=== PATIENT | male | born 1950 | race Caucasian/White ===

== ENCOUNTER → 2016-08-16 | Outpatient (CLI) | payer MEDICARE, BC ==
[2014-06-18 11:29] VITALS: BP 135/78
[~2016-08-16] MED LIST: AMLO5TAB2 PO; ATOR20TA58 PO; CONTRAST GIVEN MC PRN; CYCL10TA2 PO; DOCU-109 PO; ERGO500027 PO; FEXO180T16 PO; FLUT12AE IH; HYDR12.58 PO; LEVO75TA5 PO; LOSA50TA6 PO; TAMS0.4C2 PO; TRIA115C TP; [UNRECOGNIZED DRUG - REMARK]
[2016-08-16 09:07] LABS: CREATININE 1.6 mg/dL (0.7-1.3); GFR 43.2
[2016-08-16] MEDS: IOHEXOL 300 MG/ML 75 ML VIAL IV ONE (09:19)
--- NOTE | 2016-08-16 10:30 | RAD ---
CT of the abdomen with and without contrast, 08/16/2016: History: Follow-up renal mass Multidetector CT imaging was performed prior to and following an IV bolus injection of iodinated contrast material. The postcontrast scans were obtained in nephrographic, portal venous and excretory phases. No oral contrast material was administered for this study. Comparison is made to CT studies from 06/15/2015 and 07/09/2014. No renal calculi are identified. There is minimal bilateral cortical scarring. There is mild streaky perinephric edema or scarring bilaterally. There is a faint 8 mm low density nodule in the upper pole of the right kidney. It is best seen on coronal image 85 of series #12. It has shown no definite change since a study from 07/09/2014. It is too small to definitively characterize on the CT study. The vague area of decreased density seen laterally in the right kidney on previous studies is not visible on today's exam. This may represent a complicated cyst which has regressed or an old focus of infection. No new or enlarging renal lesions are seen. The renal collecting systems and proximal ureters are unremarkable. No hepatic abnormality is detected. The gallbladder is unremarkable. No pancreatic abnormality is detected. The spleen is of normal size. No adrenal abnormality is detected. There is mild calcific plaquing of the abdominal aorta and its branches. Coronary artery calcifications are present. No abdominal adenopathy is seen. The visualized bowel loops are unremarkable. IMPRESSION: 1. Unchanged tiny subcentimeter low density nodule in the upper pole of the right kidney, too small to characterize. A prior MR study suggested that this is a cyst. 2. Further regression of the lesion previously seen laterally in the right kidney, no longer clearly visible. 3. Mild bilateral renal cortical scarring. 4. Minimal bilateral perinephric edema and/or scarring. PQRS Compliance Statement: One or more of the following individualized dose reduction techniques were utilized for this examination: 1. Automated exposure control 2. Adjustment of the mA and/or kV according to patient size 3. Use of iterative reconstruction technique
== END | disposition home or self-care (01) ==
LOC: CT 08:21
PROVIDERS: ATTEND Urology
DX: I25.10 Atherosclerotic heart disease of native coronary artery without angina pectoris (principal); N28.89 Other specified disorders of kidney and ureter; E04.1 Nontoxic single thyroid nodule; L90.5 Scar conditions and fibrosis of skin
CPT/HCPCS: 36415; 74170; 82565; Q9967

== ENCOUNTER → 2016-10-31 | Outpatient (CLI) | payer MEDICARE ==
[2014-06-18 11:29] VITALS: BP 135/78
[~2016-10-31] MED LIST changes: -CONTRAST GIVEN MC PRN
--- NOTE | 2016-10-31 14:46 | KCIC ---
MRI of the lumbar spine without contrast 10/31/2016 CLINICAL HISTORY: Chronic low back pain with slight improvement post surgery. The low back pain radiates down the left leg. TECHNIQUE: Unenhanced T1-weighted and T2-weighted sagittal and axial and inversion recovery sagittal images of the lumbar spine were obtained. FINDINGS: Comparison study is dated 06/03/2014. Very mild S-shaped curvature of the thoracic lumbar spine is seen. Moderate anterolisthesis of L4 in relation to L5 is seen. Obliteration the L4-5 disc space is noted. Bony fusion across the disc is seen which is new since the previous study. Degenerative signal changes are seen involving all of the disks of the lumbar spine. Degenerative signal changes are seen within the marrow surrounding these discs particularly at L4-5. The conus medullaris is normal morphology, position, and signal characteristics. The L1-2 disc space there is a mild to moderate generalized disc bulge. Degenerative changes are seen involving the facet joints bilaterally. There is mild ligamentum flavum hypertrophy. There is prominence of the posterior epidural fat. These findings when combined result in mild central spinal canal stenosis. No neural foraminal stenosis is seen. At the L2-3 disc space there is a mild generalized disc bulge. Degenerative changes are seen involving the facet joints bilaterally. There is mild ligamentum flavum hypertrophy bilaterally. These findings when combine result in mild to moderate central spinal canal stenosis. No neural foraminal stenosis is seen. At the L3-4 disc space there is a moderate generalized disc bulge. Degenerative changes are seen involving the facet joints bilaterally. There is moderate ligamentum flavum hypertrophy bilaterally. There is prominence of the posterior epidural fat. These findings when combine result in severe central spinal canal stenosis. Mild bilateral neural foraminal stenosis is seen. At the L4-5 disc space the patient is post left hemilaminotomy. There is a mild generalized disc bulge. Degenerative changes are seen involving the facet joints, right greater than left. These findings when combined with the anterolisthesis result in mild to moderate right greater than left central spinal canal stenosis. This has improved since the previous examination.Severe right neural foraminal stenosis is seen. Mild left neural foraminal stenosis is noted. At the L5-S1 disc space there is a mild to moderate generalized disc bulge. This is eccentric to the left. Degenerative changes are seen involving the facet joints bilaterally. These findings when combined do not result in significant central spinal canal stenosis. Mild to moderate left neural foraminal stenosis is seen. The right neural foramen is patent. IMPRESSION: 1. Post left hemilaminotomy at L4-5. The central spinal canal stenosis has improved since the previous examination. 2. The changes of degenerative disc disease are seen throughout the lumbar spine. These findings result in mild to moderate central spinal canal stenosis at L2-3, severe central spinal canal stenosis at L3-4 and mild to moderate right greater than left central spinal canal stenosis at L4-5. Mild bilateral neural foraminal stenosis is seen at at L3-4. Severe right neural foraminal stenosis is seen at L4-5. Mild left neural foraminal stenosis is seen at L4-5. Mild to moderate left neural foraminal stenosis is seen at L5-S1. Electronically signed by: Job Bettencourt MD (10/31/2016 2:42 PM) [facility]
== END | disposition home or self-care (01) ==
LOC: KCIC MRI 10:35
PROVIDERS: ATTEND Family Medicine
DX: M48.06 Spinal stenosis, lumbar region (principal); M51.36 Other intervertebral disc degeneration, lumbar region
CPT/HCPCS: 72148

== ENCOUNTER → 2016-11-29 | Outpatient (CLI) | payer MEDICARE ==
[2014-06-18 11:29] VITALS: BP 135/78
[~2016-11-29] MED LIST changes: +ASPI-482 PO; +HYDR-2758 PO; +HYDR-2762 PO; +ISOS60TA2 PO; +METH750T2 PO
[2016-11-29 14:20] LABS: BASO % 1 % (0-3); EOS % 13 % (0-3); HEMATOCRIT 33.7 % (39.0-53.0); HEMOGLOBIN 11.5 g/dL (13.0-17.5); LYMPH # 1.4 x10^3/uL (1.0-4.8); LYMPH % 20 % (24-48); MEAN CORPUSCULAR HEMOGLOBIN 32 pg (25-35); MEAN CORPUSCULAR HGB CONC 34 g/dL (31-37); MEAN CORPUSCULAR VOLUME 93 fL (79-100); MONO % 10 % (0-9); NEUT % 56 % (31-73); PLATELET COUNT 232 x10^3/uL (140-400); RED BLOOD COUNT 3.62 x10^6/uL (4.30-5.70); RED CELL DISTRIBUTION WIDTH 13.3 % (11.5-14.5); WHITE BLOOD COUNT 7.1 x10^3/uL (4.0-11.0)
[2016-11-29 15:00] LABS: ALBUMIN 3.9 g/dL (3.4-5.0); ALBUMIN/GLOBULIN RATIO 1.1 (1.0-1.7); CALCIUM 9.4 mg/dL (8.5-10.1); CREATININE 1.5 mg/dL (0.7-1.3); GFR 46.5; POTASSIUM 4.4 mmol/L (3.5-5.1); TOTAL BILIRUBIN 0.6 mg/dL (0.2-1.0); TOTAL PROTEIN 7.3 g/dL (6.4-8.2)
--- NOTE | 2016-12-05 11:04 | HP ---
ADMIT DATE: 12/05/2016 Renny Barton APRN, dictating for Dr. Cole Ruiz. Preoperative history and physical for surgery scheduled on 12/06/2016. HISTORY OF PRESENT ILLNESS: The patient is a pleasant 66-year-old who in 06/2014 underwent lumbar microsurgery at L4-L5 and did well from that. He says that over the last 6 months to a year, he has developed low back pain which radiates to the left lateral thigh and leg. There is pain in his left ankle. There is no inciting event. Standing and walking increases pain. He rates his pain as an 8/10 with walking. Sitting for prolonged periods also increases his pain. He takes [place] to help. Rest and limitation of activities have been of no significant benefit for him. PAST MEDICAL HISTORY: Asthma/COPD, neck/head injury, hypertension, serious infection. PAST SURGICAL HISTORY: Cervical surgery in 1988, shoulder repair in 2013, hernia repair in 2013, lumbar microdecompression at L4-L5 left in 06/2014. FAMILY HISTORY: Alzheimer disease, aneurysm, heart problems/disease, hypertension. SOCIAL HISTORY: Retired. . Exercises by walking. He is a nonsmoker. He drinks 4 drinks daily. He drinks soda daily. ALLERGIES: No known allergies. CURRENT MEDICATIONS: Zolpidem, levothyroxine, losartan, atorvastatin, amlodipine, tamsulosin, and [place]. REVIEW OF SYSTEMS: A 12-point review of systems was obtained and is noncontributory except for that mentioned above. PHYSICAL EXAMINATION: GENERAL APPEARANCE: Alert, pleasant, in no acute distress. HEAD: Normocephalic and atraumatic. SKIN: Warm and dry. Well-healed lumbar incision. MUSCULOSKELETAL: Lumbar paraspinal muscle bulk is normal, restricted range of motion of lumbar spine, [id number] tenderness over the lower lumbar spine with palpation, normal range of motion of the lower extremities bilaterally. EXTREMITIES: No clubbing, cyanosis, or edema. NEUROLOGIC: Alert and oriented x 3, normal recent and remote memory, strength 5/5 in bilateral lower extremities, sensory was intact to light touch in bilateral lower extremities, reflexes were trace and symmetric in the lower extremities bilaterally, negative straight leg raising bilaterally, antalgic gait favoring his left leg. IMAGING: Reviewed. I reviewed his lumbar MRI scan. On that study, there is severe stenosis seen at L4-L5 that has improved. He had developed increasing stenosis at L3-L4 which is now severe as well as moderately severe stenosis at L2-L3. This is due to an increase in the hypertrophic facet disease as well as an increase in the amount of adipose tissue within the spinal canal. ASSESSMENT: Spinal stenosis, lumbar region with neurogenic claudication. PLAN: He has lumbar spinal stenosis, which is severe. He is becoming very symptomatic. At this point, I recommended a left direct laminectomy at L3-L4 and L2-L3 to decompress these levels. Hopefully, this will give him significant relief. I did speak about the surgery and the risks involved. I spoke about the technique of the operation. I discussed the expected postoperative course. He understands and would like to go ahead. We will make the arrangements. COLE RUIZ MD DR: RYAN/nia JOB#: [id number] / [id number]
== END | disposition home or self-care (01) ==
LOC: SURGPAT 13:19
PROVIDERS: ATTEND Neurological Surgery
DX: Z01.818 Encounter for other preprocedural examination (principal); M48.061 Spinal stenosis, lumbar region without neurogenic claudication; M48.062 Spinal stenosis, lumbar region with neurogenic claudication
CPT/HCPCS: 36415; 80053; 85025; 87641

== ENCOUNTER 2016-12-06 07:05 | Observation (INO) | payer MEDICARE ==
--- NOTE | 2016-12-05 17:10 | HP ---
ADMIT DATE: 12/05/2016 Renny Barton APRN, dictating for Dr. Cole Ruiz. Preoperative history and physical for surgery scheduled on 12/06/2016. HISTORY OF PRESENT ILLNESS: The patient is a pleasant 66-year-old who in 06/2014 underwent lumbar microsurgery at L4-L5 and did well from that. He says that over the last 6 months to a year, he has developed low back pain which radiates to the left lateral thigh and leg. There is pain in his left ankle. There is no inciting event. Standing and walking increases pain. He rates his pain as an 8/10 with walking. Sitting for prolonged periods also increases his pain. He takes [place] to help. Rest and limitation of activities have been of no significant benefit for him. PAST MEDICAL HISTORY: Asthma/COPD, neck/head injury, hypertension, serious infection. PAST SURGICAL HISTORY: Cervical surgery in 1988, shoulder repair in 2013, hernia repair in 2013, lumbar microdecompression at L4-L5 left in 06/2014. FAMILY HISTORY: Alzheimer disease, aneurysm, heart problems/disease, hypertension. SOCIAL HISTORY: Retired. . Exercises by walking. He is a nonsmoker. He drinks 4 drinks daily. He drinks soda daily. ALLERGIES: No known allergies. CURRENT MEDICATIONS: Zolpidem, levothyroxine, losartan, atorvastatin, amlodipine, tamsulosin, and [place]. REVIEW OF SYSTEMS: A 12-point review of systems was obtained and is noncontributory except for that mentioned above. PHYSICAL EXAMINATION: GENERAL APPEARANCE: Alert, pleasant, in no acute distress. HEAD: Normocephalic and atraumatic. SKIN: Warm and dry. Well-healed lumbar incision. MUSCULOSKELETAL: Lumbar paraspinal muscle bulk is normal, restricted range of motion of lumbar spine, [id number]-fb-[id number] tenderness over the lower lumbar spine with palpation, normal range of motion of the lower extremities bilaterally. EXTREMITIES: No clubbing, cyanosis, or edema. NEUROLOGIC: Alert and oriented x 3, normal recent and remote memory, strength 5/5 in bilateral lower extremities, sensory was intact to light touch in bilateral lower extremities, reflexes were trace and symmetric in the lower extremities bilaterally, negative straight leg raising bilaterally, antalgic gait favoring his left leg. IMAGING: Reviewed. I reviewed his lumbar MRI scan. On that study, there is severe stenosis seen at L4-L5 that has improved. He had developed increasing stenosis at L3-L4 which is now severe as well as moderately severe stenosis at L2-L3. This is due to an increase in the hypertrophic facet disease as well as an increase in the amount of adipose tissue within the spinal canal. ASSESSMENT: Spinal stenosis, lumbar region with neurogenic claudication. PLAN: He has lumbar spinal stenosis, which is severe. He is becoming very symptomatic. At this point, I recommended a left direct laminectomy at L3-L4 and L2-L3 to decompress these levels. Hopefully, this will give him significant relief. I did speak about the surgery and the risks involved. I spoke about the technique of the operation. I discussed the expected postoperative course. He understands and would like to go ahead. We will make the arrangements. COLE RUIZ MD DR: RYAN/nia JOB#: [id number] / [id number]
[2016-12-06] VITALS (9 sets, daily range): BP systolic 118–142; BP diastolic 59–112
[~2016-12-06] VITALS: Ht 182.9 cm; Wt 129.9 kg
[~2016-12-06 07:05] MED LIST changes: +BACITRACIN 50,000 UNIT in IV NORMAL SALINE 1000ML BAG 1,000 ML IRR ONE; +BUPIVACAINE-EPI 0.25%-1:200000 MPF 30 ML VIAL. ONE; +GELATIN SPONGE SIZE 100. ONE; -HYDR-2762 PO; +HYDROmorphone 2 MG/ML VIAL IV PRN; +KETOROLAC 60 MG/2 ML INJ FOR OR. ONE; +LIDOCAINE 1% PF 2 ML VIAL. ID PRN; -METH750T2 PO; +MORPHINE SULFATE 2 MG/ML DISP.SYRIN. IV PRN; +ONDANSETRON PF 4 MG/2 ML VIAL. IV PRN; +PROCHLORPERAZINE 10 MG/2 ML VIAL. IV PRN; +THROMBIN TOPICAL 20,000 UNIT SPRAY.SYRN KIT TP ONE; +fentaNYL PF VIAL 100 MCG/2 ML VIAL IV PRN
[2016-12-06] MEDS ORDERED: ALBUTEROL SULFATE 2.5 MG/3 ML NEBU. NEB ONE ×2 (08:00→12:45)
[2016-12-06] MEDS ORDERED: ONDANSETRON PF 4 MG/2 ML VIAL. ONE (08:03)
[2016-12-06] MEDS ORDERED: 0.9 % SODIUM CHLORIDE 50 ML VIAL. IJ ONE (08:03)
[2016-12-06] MEDS ORDERED: LIDOCAINE 2% PF Vial for OR 5 ML VIAL. ONE (08:03)
[2016-12-06] MEDS ORDERED: DEXAMETHASONE SOD PHOS 20 MG/5 ML VIAL. ONE (08:03)
[2016-12-06] MEDS ORDERED: ROCURONIUM 50 MG/5 ML VIAL. ONE (08:03)
[2016-12-06] MEDS ORDERED: REMIFENTANIL 2 MG VIAL. IV ONE (08:03)
[2016-12-06] MEDS ORDERED: PROPOFOL 20 ML IV ONE (08:03)
[2016-12-06] MEDS ORDERED: PHENYLEPHRINE 10 MG/ML VIAL. ONE (08:03)
[2016-12-06] MEDS ORDERED: PROPOFOL 50 ML IV ONE ×3 (08:03→11:22)
[2016-12-06] MEDS: IV RINGERS,LACTATED 1000ML 1,000 ML IV SCH ×2 (08:06→13:46)
[2016-12-06] MEDS ORDERED: MINERAL OIL/PETROLATUM,WHITE OPHTH OINT 3.5GM TUBE. ONE (08:58)
[2016-12-06] MEDS ORDERED: GLYCOPYRROLATE 1 MG/5 ML VIAL. ONE (09:16)
[2016-12-06] MEDS ORDERED: SEVOFLURANE > 120 MINUTES. IH ONE (11:22)
[2016-12-06] MEDS: POTASSIUM CL 20MEQ D5-0.45NACL 1,000 ML IV SCH (12:25)
[2016-12-06] MEDS ORDERED: ALBUTEROL SULFATE 2.5 MG/3 ML NEBU. ONE (12:29)
[2016-12-06] MEDS ORDERED: MAG HYDROX/ALUMINUM HYD/SIMETH 30 ML ORAL.SUSP PO PRN (12:30)
[2016-12-06] MEDS ORDERED: fentaNYL PF VIAL 100 MCG/2 ML VIAL IV PRN ×2 (12:30)
[2016-12-06] MEDS ORDERED: diphenhydrAMINE 50 MG/ML VIAL IV PRN (12:30)
[2016-12-06] MEDS ORDERED: ACETAMINOPHEN 325 MG TABLET. PO PRN (12:30)
[2016-12-06] MEDS ORDERED: CALCIUM CARBONATE 500 MG TAB.CHEW PO PRN (12:30)
[2016-12-06] MEDS ORDERED: diphenhydrAMINE HCL 25 MG CAPSULE PO PRN (12:30)
[2016-12-06] MEDS ORDERED: HYDROcodone/APAP 7.5/325MG 1 TAB TABLET PO PRN (12:30)
[2016-12-06] MEDS ORDERED: MAGNESIUM HYDROXIDE 2,400 MG/30 ML ORAL.SUSP. PO PRN (12:30)
[2016-12-06] MEDS ORDERED: ZOLPIDEM 5 MG TABLET. PO PRN (12:30)
[2016-12-06] MEDS ORDERED: 0.9 % SODIUM CHLORIDE 10 ML DISP.SYRIN. IV PRN (12:30)
[2016-12-06] MEDS: ASPIRIN ENTERIC COATED 81 MG TABLET.DR. PO SCH (13:00)
[2016-12-06] MEDS: amLODIPine BESYLATE 5 MG TABLET PO SCH (13:00)
[2016-12-06] MEDS: ISOSORBIDE MONONITRATE ER 30 MG TAB.ER.24H PO SCH (13:00)
[2016-12-06] MEDS: METHOCARBAMOL 750 MG TABLET PO SCH ×2 (14:00→20:59)
[2016-12-06] MEDS: LOSARTAN POTASSIUM 50 MG TABLET. PO SCH (14:00)
[2016-12-06] MEDS: HYDROcodone/APAP 7.5/325MG 1 TAB TABLET PO PRN ×2 (15:47→20:59)
[2016-12-06] MEDS: DOCUSATE SODIUM 100 MG CAPSULE. PO SCH (20:59)
[2016-12-06] MEDS ORDERED: ATORVASTATIN CALCIUM 20 MG TABLET PO SCH (21:00)
[2016-12-07] MEDS: POTASSIUM CL 20MEQ D5-0.45NACL 1,000 ML IV SCH (01:45)
[2016-12-07 03:22] VITALS: BP 131/80
[2016-12-07 06:10] VITALS: BP 144/85
[2016-12-07] MEDS: HYDROcodone/APAP 7.5/325MG 1 TAB TABLET PO PRN (06:29)
[2016-12-07] MEDS ORDERED: LEVOTHYROXINE 75 MCG TABLET PO SCH (07:00)
[2016-12-07] MEDS: DOCUSATE SODIUM 100 MG CAPSULE. PO SCH (08:10)
[2016-12-07] MEDS: METHOCARBAMOL 750 MG TABLET PO SCH (08:10)
[2016-12-07] MEDS: ASPIRIN ENTERIC COATED 81 MG TABLET.DR. PO SCH (08:10)
[2016-12-07] MEDS: amLODIPine BESYLATE 5 MG TABLET PO SCH (08:11)
[2016-12-07] MEDS: LOSARTAN POTASSIUM 50 MG TABLET. PO SCH (08:13)
[2016-12-07 08:15] VITALS: BP 134/72
[2016-12-07] MEDS ORDERED: TAMSULOSIN 0.4 MG CAP.ER.24H. PO SCH (09:00)
[2016-12-07] MEDS: ISOSORBIDE MONONITRATE ER 30 MG TAB.ER.24H PO SCH (09:00)
--- NOTE | 2016-12-07 10:45 | DISCH ---
DISCHARGE INSTRUCTIONS Condition on Discharge Condition on Discharge: Stable Activity After Discharge Activity Instructions for Disc: Activity as tolerated, Avoid exertion Other activity instructions: no driving for a week Bathing Instructions: Shower-keep dressing dry Lifting Instructions after Dis: No heavy lifting, No pulling or pushing, Do not lift >10 pounds Diet after Discharge Additional Diet Restrictions: resume home diet Wound Incision Care Wound/Incision Care: Ice to area for comfort Other wound/incision instructi: may remove drssing in 48 hours if dry then may shower, no soaking Contacting the DRLaly after DC Call your doctor for: Concerns you may have Follow-Up Follow up with: Dr. Ruiz's nurse in 2 weeks [phone] CARROLL RUIZ MD Dec 07, 2016 10:45
[2016-12-07] MEDS ORDERED: HYDR-2762 PO (10:47)
[2016-12-07] MEDS ORDERED: METH750T2 PO (10:47)
[2016-12-07] MEDS ORDERED: DOCU-109 PO (10:47)
[2016-12-07 10:50] VITALS: BP 134/73
--- NOTE | 2016-12-10 11:47 | PATHOLOGY ---
PATHOLOGY REPORT * * * * * * * * FINAL DIAGNOSIS: Segments of fibrocartilaginous, fibroadipose, and skeletal muscle tissue and bone, lumbar decompression and disc: - Degenerative changes of fibrocartilaginous tissue. (JPM:iva; 12/10/2016) COMMENT: There is no evidence of an acute inflammatory process or malignancy. REPORT ELECTRONICALLY SIGNED BY: Stanislav Medina M.D. DATE/TIME: 12/10/2016 11:47 * * * * * * * * GROSS PATHOLOGY: Received in formalin labeled "Tomas Sanchez, lumbar decompression and disc," are multiple segments of glistening, espinoza, rubbery and gritty tissue measuring 4.7 x 4.7 x 1.0 cm in aggregate dimensions. The tissue is submitted representatively in cassette A1, following decalcification. (SDY; 12/07/2016) INITIAL CPT CODE(S): A; 65548 Professional services performed [place] [place] [address] Technical services performed by [facility] at [address] [place] [address]. SPECIMEN(S) RECEIVED: A.Lumbar decompression and disc CLINICAL HISTORY: Lumbar stenosis PATIENT: TOMAS SANCHEZ /AGE: 4 1950 (Age: 66) PATIENT #: [id number] ALT CASE #: SPECIMEN COLLECTION DATE: 12/06/2016 SPECIMEN RECEIVED DATE: 12/06/2016 [facility] - [address] [place] [address] - PHONE: [phone] * * * END OF REPORT * * *
--- NOTE | 2016-12-11 21:02 | OP ---
DATE OF SURGERY: 12/06/2016 PREOPERATIVE DIAGNOSES: Lumbar spinal stenosis L3-L4 from herniated nucleus pulposus and epidural lipomatosis, lumbar spinal stenosis L2-L3 from hypertrophic facet disease and epidural lipomatosis. OPERATION PERFORMED: Left direct laminectomy L2-L3, L3-L4 with decompression of dura and nerve root at L2-L3 and decompression of dura and nerve root with diskectomy at L3-L4. The operation was done with EMG monitoring, fluoroscopy and microscopic dissection. TILE PROFESSIONAL: ANNA Rosa, assisted with the surgery. She assisted with the microdecompression, diskectomy as well as the closure. OPERATIVE INDICATIONS: The patient is a pleasant 66-year-old man who developed intractable back and left leg pain. He had undergone previous lumbar microsurgery in 2015 and did well from that. His problems increased with signs and symptoms of neurogenic claudication and radiculopathy and I recommended a 2-level lumbar microdecompressive surgery after reviewing his MRI scan. He understood the surgery and the risks. He understood the technique of the operation and he wished to go ahead. DESCRIPTION OF PROCEDURE: Following general endotracheal anesthesia, the patient was positioned prone on the Davion table. His lumbar region was prepped and draped in the standard fashion. KEIKO hose and AV impulse boots were applied for DVT prophylaxis. A microscope was draped. Fluoroscopy was draped and brought into field. Monitoring was established. Ancef 2 grams was given less than 1 hour prior to initiation of the surgery. Using fluoroscopic guidance, a midline incision was made extending from L2 to L4. I dissected down through the skin and subcutaneous tissue and reflected the paraspinal muscles to the left and placed a [place] micro disk retractor. I brought in the microscope and using a high speed air drill, I burred down a generous hemilaminotomy at L3-L4 and I also tilted the patient away from or and drilled across the midline to the contralateral side. There was a great deal of midline epidural lipomatosis tissue and I teased back and removed this tissue. I then tilted the patient and peeled away the ligamentum flavum and from medial to lateral end, I performed a partial foraminotomy with a high speed air drill. I removed the ligament and decompressed slightly lateral to the medial aspect of the pedicle. I could fully visualize the dura and the exiting root at this level. I gently retracted the root medially. There was a large hard bulging disk and I incised the ligament and annulus with 11 blade and I performed a diskectomy with pituitary rongeurs. As I worked, I performed the decompression as well as a diskectomy. The region became very well decompressed. Completing this, then I did coagulate a few epidural veins and I used small amounts of bone wax where needed. I moved up to L2-L3 and in a similar fashion, drilled down a hemilaminectomy. I, at this level, again peeled away the ligamentum flavum and I removed the lipomatosis tissue, fully decompressing the entire region. The disk at this level was firm and flat. No diskectomy was warranted. I did perform a partial foraminotomy. I irrigated copiously with antibiotic solution. Hemostasis was excellent. Removed the retractor, obtained hemostasis in the muscle, then I closed the wound in layers with absorbable sutures. The skin was closed with 4-0 subcuticular stitch. The operation went very well and the patient was taken to Recovery Room in excellent condition. I was quite pleased with the surgery. CARROLL RUIZ MD DR: RYAN/nia JOB#: [id number] / [id number]
[2016-12-14] MEDS ORDERED: ERGOCALCIFEROL (VITAMIN D2) 50,000 UNIT CAPSULE. PO SCH (09:00)
== END 2016-12-07 11:35 | disposition home or self-care (01) ==
LOC: SURG 07:05 → 4 SOUTHEST 12:25
PROVIDERS: ADMIT Neurological Surgery; ATTEND Neurological Surgery
DX: M48.062 Spinal stenosis, lumbar region with neurogenic claudication (principal); J44.9 Chronic obstructive pulmonary disease, unspecified; I10 Essential (primary) hypertension; Z82.0 Family history of epilepsy and other diseases of the nervous system; Z82.49 Family history of ischemic heart disease and other diseases of the circulatory system
CPT/HCPCS: 63047; 63048; 76000; 88304; 88311; 94640; 97161; G0378; G0379; J0690; J1100; J1885; J2405; J2704; J3490; J7030; J7120; J7613; J2001

== ENCOUNTER → 2017-06-11 | Outpatient (CLI) | payer MEDICARE ==
[2017-06-11 13:04] LABS: ISTAT CREATININE 1.4 mg/dL (0.7-1.3)
[2017-06-11] MEDS: GADOBUTROL 7.5 MMOL/7.5 ML VIAL IV ×2 (13:04→13:05)
== END | disposition home or self-care (01) ==
LOC: KCIC MRI 12:08
DX: M51.16 Intervertebral disc disorders with radiculopathy, lumbar region (principal); M48.061 Spinal stenosis, lumbar region without neurogenic claudication; M43.16 Spondylolisthesis, lumbar region; M25.78 Osteophyte, vertebrae; I10 Essential (primary) hypertension
CPT/HCPCS: 72158; 82565; A9585

== ENCOUNTER → 2017-08-20 | Outpatient (CLI) | payer MEDICARE | END | disposition home or self-care (01) | LOC: KCIC US 10:07 | DX: N28.1 Cyst of kidney, acquired (principal); I10 Essential (primary) hypertension; J44.9 Chronic obstructive pulmonary disease, unspecified | CPT/HCPCS: 76770 ==

== ENCOUNTER → 2017-09-12 | Outpatient (CLI) | payer MEDICARE ==
[~2017-09-12] MED LIST changes: -AMLO5TAB2 PO; -ASPI-482 PO; -ATOR20TA58 PO; -BACITRACIN 50,000 UNIT in IV NORMAL SALINE 1000ML BAG 1,000 ML IRR ONE; -BUPIVACAINE-EPI 0.25%-1:200000 MPF 30 ML VIAL. ONE; -CYCL10TA2 PO; -DOCU-109 PO; -ERGO500027 PO; -FEXO180T16 PO; -FLUT12AE IH; -GELATIN SPONGE SIZE 100. ONE; -HYDR-2758 PO; -HYDR12.58 PO; -HYDROmorphone 2 MG/ML VIAL IV PRN; +IOHEXOL 180 MG/ML 10 ML VIAL.; -ISOS60TA2 PO; -KETOROLAC 60 MG/2 ML INJ FOR OR. ONE; -LEVO75TA5 PO; -LIDOCAINE 1% PF 2 ML VIAL. ID PRN; +LIDOCAINE 2% PF 2ML VIAL.; -LOSA50TA6 PO; -MORPHINE SULFATE 2 MG/ML DISP.SYRIN. IV PRN; -ONDANSETRON PF 4 MG/2 ML VIAL. IV PRN; -PROCHLORPERAZINE 10 MG/2 ML VIAL. IV PRN; -TAMS0.4C2 PO; -THROMBIN TOPICAL 20,000 UNIT SPRAY.SYRN KIT TP ONE; -TRIA115C TP; -[UNRECOGNIZED DRUG - REMARK]; -fentaNYL PF VIAL 100 MCG/2 ML VIAL IV PRN; +methylPREDNISolone ACETATE 40 MG/ML VIAL.; +methylPREDNISolone ACETATE 80 MG/ML VIAL.
== END | disposition home or self-care (01) ==
LOC: PNCL 13:17
DX: M51.16 Intervertebral disc disorders with radiculopathy, lumbar region (principal); M48.062 Spinal stenosis, lumbar region with neurogenic claudication; M96.1 Postlaminectomy syndrome, not elsewhere classified; I10 Essential (primary) hypertension; M19.90 Unspecified osteoarthritis, unspecified site; J44.9 Chronic obstructive pulmonary disease, unspecified; E66.9 Obesity, unspecified; H91.90 Unspecified hearing loss, unspecified ear; Z98.1 Arthrodesis status; Z98.890 Other specified postprocedural states; Z79.82 Long term (current) use of aspirin; Z79.899 Other long term (current) drug therapy; Z88.8 Allergy status to other drugs, medicaments and biological substances; Z82.49 Family history of ischemic heart disease and other diseases of the circulatory system; Z72.89 Other problems related to lifestyle; Z91.030 Bee allergy status; E78.00 Pure hypercholesterolemia, unspecified; Z86.010 Personal history of colon polyps; E03.9 Hypothyroidism, unspecified; Z85.828 Personal history of other malignant neoplasm of skin; Z82.5 Family history of asthma and other chronic lower respiratory diseases; N28.89 Other specified disorders of kidney and ureter
CPT/HCPCS: 62323; J1030; J1040; J2001; Q9965

== ENCOUNTER → 2017-09-27 | Outpatient (CLI) | payer MEDICARE ==
[~2017-09-27] MED LIST changes: +AMLO5TAB2 PO; +ASPI-482 PO; +ATOR20TA58 PO; +CYCL10TA2 PO; +DOCU-109 PO; +ERGO500027 PO; +FEXO180T16 PO; +FLUT12AE IH; +HYDR-2758 PO; +HYDR-2762 PO; +HYDR12.58 PO; +HYDR25TA PO; -IOHEXOL 180 MG/ML 10 ML VIAL.; +IOHEXOL 180 MG/ML 10 ML VIAL. ONE; +ISOS60TA2 PO; +LEVO75TA5 PO; -LIDOCAINE 2% PF 2ML VIAL.; +LIDOCAINE 2% PF 2ML VIAL. ONE; +LORA-794 PO; +LOSA50TA6 PO; +METH750T2 PO; +TAMS0.4C2 PO; +TRIA115C TP; +[UNRECOGNIZED DRUG - REMARK]; -methylPREDNISolone ACETATE 40 MG/ML VIAL.; +methylPREDNISolone ACETATE 40 MG/ML VIAL. ONE; -methylPREDNISolone ACETATE 80 MG/ML VIAL.; +methylPREDNISolone ACETATE 80 MG/ML VIAL. ONE
--- NOTE | 2017-09-27 19:13 | PAIN ---
DATE OF SERVICE: 09/27/2017 DIAGNOSES: Lumbar radiculopathy with lumbar spinal stenosis and neurogenic claudication and post-lumbar laminectomy syndrome. HISTORY OF PRESENT ILLNESS: The patient is a 67-year-old male who returns for followup status post lumbar epidural steroid injection x 1. The patient reports about 50% improvement for the first few days, then about 20% improvement overall in his low back and left lower extremity pain. The patient reports still in the leg, but not as much as it was mostly in the low back. The patient reports his pain is a 5 on a scale of 10 on average, 7 at its worst and a 3 at its least. The patient reports it is a 5 today. The patient reports no new motor or sensory deficits. He has increased his distance walking and better mobility, also doing household activities with greater ease and comfort, was at home. The patient reports pain is radiating, cramping, aching, on and off in intensity, better with lying down, does not awaken him from sleep at night, better with sitting, worse with walking and standing. The patient reports no new motor or sensory deficits, no new bowel or bladder incontinence or other complaints. PHYSICAL EXAMINATION: VITAL SIGNS: The patient's blood pressure 119/66, pulse 57, respirations 20, temperature is 97.5 degrees Fahrenheit, height is 6 feet 0 inches, weight is 282 pounds. GENERAL: The patient is awake, alert, oriented, appropriate, very pleasant demeanor. HEENT: Head shows normocephalic, atraumatic. Extraocular movements are intact, symmetrical. Oral cavity: Mucous membranes moist and pink. Dentition is intact. NECK: Shows anterior throat supple without palpable lymphadenopathy noted. Swallow reflex is symmetrical. CHEST: Shows normal on inspection. Breath sounds clear to auscultation bilaterally. HEART: Shows S1, S2 clear. No murmurs auscultated. ABDOMEN: Obese, soft, nontender, nondistended. No palpable organomegaly is noted. No rebound or guarding demonstrated. BACK: Shows spine grossly in the midline. Normal appearing thoracic kyphosis, some minor flattening of lumbar lordotic curvature. Well-healed surgical scar is noted. Lumbar paraspinous musculature shows symmetrical on inspection, on palpation shows some moderate tenderness with lumbar paraspinous musculature in the low lumbar distribution, but only moderately and without radiation and only diffusely in the lumbar paraspinous muscles. No radiation, no trigger points. The patient has good rotational motion of lumbar spine, both laterally as well as extension and flexion without significant difficulty or pain reported. EXTREMITIES: Lower extremities show deep tendon reflexes 1+ in the patellar and tendo calcaneus tendons are equal. Motor exam is strong with approximately 4 on a scale of 5 on the left dorsiflexion, extension, 5/5 on the right. Peripheral pulses are 1+ posterior tibial. No peripheral edema is noted. Options were discussed with the patient. The patient's old chart was reviewed as his current medication regimen and updated. Current review of systems is updated today as well. We will proceed with a second in the series of lumbar epidural steroid injection today with fluoroscopic guidance. Risks were again discussed including, but not limited to bleeding, infection, possibility of epidural hematoma and subsequent neurological compromise, dural puncture, headaches, spinal cord and/or nerve damage, side effects of steroid medication and poor results regarding pain control. The patient understands and wished to proceed. The patient will return to clinic in approximately 2 weeks for followup, was counseled on return appointment, activity level and side effects to be aware of. DIAGNOSES: Lumbar radiculopathy with lumbar post-laminectomy syndrome and lumbar spinal stenosis with neurogenic claudication. PROCEDURE: Lumbar epidural steroid injection in translaminar approach L5-S1 using C-arm fluoroscopic guidance under sterile prep and drape using local anesthetic. MEDICATION INJECTED: A total of 120 mg Depo-Medrol plus 10 mL of preservative-free normal saline and 2 mL of Isovue for contrast. CONDITION AT DISCHARGE: Stable. The patient tolerated procedure well, had no complications. SYED LANGLEY MD DR: MANE/nia JOB#: [id number] / [id number]
== END | disposition home or self-care (01) ==
LOC: PNCL 10:29
PROVIDERS: ATTEND Anesthesiology
DX: M48.062 Spinal stenosis, lumbar region with neurogenic claudication (principal); M96.1 Postlaminectomy syndrome, not elsewhere classified; M54.16 Radiculopathy, lumbar region; I10 Essential (primary) hypertension; E78.00 Pure hypercholesterolemia, unspecified; J44.9 Chronic obstructive pulmonary disease, unspecified; E03.9 Hypothyroidism, unspecified; Z86.010 Personal history of colon polyps; Z98.890 Other specified postprocedural states; Z72.89 Other problems related to lifestyle; Z85.828 Personal history of other malignant neoplasm of skin; Z82.5 Family history of asthma and other chronic lower respiratory diseases; Z88.8 Allergy status to other drugs, medicaments and biological substances; Z91.030 Bee allergy status; Z79.82 Long term (current) use of aspirin; Z79.899 Other long term (current) drug therapy; Z98.1 Arthrodesis status; Z82.49 Family history of ischemic heart disease and other diseases of the circulatory system; H91.90 Unspecified hearing loss, unspecified ear; M19.90 Unspecified osteoarthritis, unspecified site
CPT/HCPCS: 62323; J1030; J1040; J2001; Q9965

== ENCOUNTER → 2018-04-28 | Outpatient (CLI) | payer MEDICARE ==
[~2018-04-28] MED LIST changes: +AMLO5TAB10 PO; -AMLO5TAB2 PO; -HYDR-2758 PO; +HYDR-2761 PO; -HYDR-2762 PO; +HYDR-2765 PO; -IOHEXOL 180 MG/ML 10 ML VIAL. ONE; -LIDOCAINE 2% PF 2ML VIAL. ONE; -LORA-794 PO; +LORA-915 PO; +LOSA-73 PO; -LOSA50TA6 PO; -methylPREDNISolone ACETATE 40 MG/ML VIAL. ONE; -methylPREDNISolone ACETATE 80 MG/ML VIAL. ONE
--- NOTE | 2018-04-28 17:03 | KCIC ---
Indication:Renal mass. TECHNIQUE: Grayscale, color Doppler and spectral waveform is of the kidneys obtained. COMPARISON: 08/20/2017 ultrasound FINDINGS: The right kidney measures 12.3 x 4.2 x 5.5 cm (nodule, AP, transverse) without hydronephrosis. The left kidney measures 12.7 x 5.6 x 5.4 cm without hydronephrosis. Bladder is decompressed. IMPRESSION: No hydronephrosis or apparent renal mass seen. No mass also seen on prior CT abdomen pelvis from 08/16/2016. If concern for renal mass persists further evaluation with MRI of the abdomen with IV contrast is recommended. Electronically signed by: Pipo Donaldson DO (04/28/2018 5:00 PM) [facility]
== END | disposition home or self-care (01) ==
LOC: KCIC US 15:29
PROVIDERS: ATTEND Urology
DX: N28.89 Other specified disorders of kidney and ureter (principal)
CPT/HCPCS: 76770

== ENCOUNTER → 2018-12-10 | Outpatient (CLI) | payer MEDICARE ==
--- NOTE | 2018-12-10 15:42 | KCIC ---
MRI Lumbar Spine without contrast History: Back pain, previous surgery, increased left hip pain Technique: Multiplanar, multi sequential noncontrast MR imaging was performed of the lumbar spine. Comparison: June 11, 2017 Findings: There is motion degradation. There is again L4-5 interbody fusion. There is again mild to moderate L3-4 degenerative disc disease, also vacuum disc disease L5-S1, mild disc desiccation L1-2 and L2-3. Vertebral body stature is unchanged. There is again grade 1 anterior spondylolisthesis at L4-5, negligible anterior spondylolisthesis L3-4. There is again hemangioma T12. There is posterior L3-4 endplate edema as seen previously likely reactive/degenerative in etiology, also amorphous L5-S1 endplate edema. Conus terminates near the mid to superior of L2. There is again some nonspecific edema of the posterior subcutaneous fat of the lower back. T12-L1: Neural foramina and spinal canal are adequate. L1-L2: Spinal canal and neural foramina are adequate. There is negligible disc osteophyte complex. L2-L3: There is left laminectomy defect. There is facet hypertrophic change. There is minimal disc osteophyte complex. Neural foramina and spinal canal are overall adequate. L3-L4: There is left laminectomy defect as seen previously. There is facet degenerative change. There is mild buckling of the ligamentum flavum on the right. There is again disc osteophyte complex, superimposed broad protrusion with associated annular tear in the right lateral recess about 5 to 6 mm AP greater than previously with increased indentation upon the ventral thecal sac and increased moderate to severe narrowing of the far right lateral recess, contact descending right L4 nerve root. There is also protrusion eccentric to the far left lateral recess about 5 mm AP with associated annular tear, overall mild to moderate narrowing of the far left lateral recess and degree of contact descending left L4 nerve root. There is moderate left and mild right neural foramina compromise. L4-L5: There is again facet degenerative change. There are again laminectomy defects. There is similar mild to moderate narrowing of the far right lateral recess, mild narrowing of the central canal far and left lateral recess unchanged in appearance. There is again severe narrowing of the right neural foramen with impingement of the exiting right L4 nerve root, hqsd-td-ixjveiao narrowing of the left neural foramen primarily from posteriorly by facet. L5-S1: There is again facet degenerative change. There is prominence of epidural fat in the lateral recesses greater on the right, some preserved subarachnoid space. There is again minimal posterior bulge without significant impingement descending S1 nerve roots. There is again moderate to severe narrowing of the left neural foramen by disc osteophyte complex and facet with disc osteophyte complex contacting undersurface exiting left L5 nerve root. Right neural foramen is not significantly narrowed. Impression: 1. There are protrusions in the lateral recesses bilaterally at L3-4, right greater than left with increased right greater than left lateral recess stenosis and contact of the descending L4 nerve roots. 2. There is again grade 1 anterior spondylolisthesis at L4-5, interbody fusion at this level. There is other degenerative disc disease greatest at L5-S1 and L3-4. 3. There is neural foramina compromise as stated most notable on the left at L5-S1 and on the right at L4-5, lesser degree of narrowing left greater than right at L3-4 and on the left at L4-5. Electronically signed by: Fer Mckeon MD (12/10/2018 3:39 PM) [id number]
== END | disposition home or self-care (01) ==
LOC: KCIC MRI 13:21
PROVIDERS: ATTEND Family Medicine
DX: M43.16 Spondylolisthesis, lumbar region (principal); M48.061 Spinal stenosis, lumbar region without neurogenic claudication; M47.817 Spondylosis without myelopathy or radiculopathy, lumbosacral region; M51.37 Other intervertebral disc degeneration, lumbosacral region; M25.78 Osteophyte, vertebrae
CPT/HCPCS: 72148

== ENCOUNTER → 2019-04-27 | Outpatient (CLI) | payer MEDICARE ==
--- NOTE | 2019-04-27 16:02 | KCIC ---
INDICATION: Renal mass COMPARISON: April 2018 ultrasound TECHNIQUE: Grayscale and color ultrasound images obtained of the bilateral kidneys and bladder. FINDINGS: Right Kidney: 110 mm. No hydronephrosis. Left Kidney: 123 mm. No hydronephrosis. Bladder: Minimal urine within a time of exam IMPRESSION: * No hydronephrosis bilaterally. * A definite mass is not identified on focused ultrasound. If there is persistent concern and further evaluation is desired MRI renal could further evaluate. Electronically signed by: Dariusz Grigsby MD (04/27/2019 3:59 PM) [id number]
== END | disposition home or self-care (01) ==
LOC: KCIC US 14:21
PROVIDERS: ATTEND Urology
DX: N28.89 Other specified disorders of kidney and ureter (principal)
CPT/HCPCS: 76770

== ENCOUNTER → 2019-09-25 | Outpatient (CLI) | payer MEDICARE ==
--- NOTE | 2019-09-25 10:31 | KCIC ---
MRI Cervical Spine Without Contrast History:Degenerative disc disease, chronic neck pain into left shoulder and anterior chest Technique: Multiplanar, multi sequential noncontrast MR imaging was performed of the cervical spine. Comparison: None Findings: There is motion degradation, exam also limited due to alternative coil usage due to patient's body habitus. Cervical vertebral body stature is maintained. There is minimal grade 1 anterior spondylolisthesis C3-4, C4-5, C5-6, and C6-7. There is dxkw-yc-awumbhdz degenerative disc disease C7-T1, minimally at C6-7, and mild disc desiccation of more superior levels. There is no significant focal marrow edema. There is degree of diffuse narrowing of the cervical spinal canal on a developmental basis. There is a hemangioma of the T2 vertebral body. There is xkex-zb-quvvkiqw levoscoliosis centered near the cervical thoracic junction. C2-C3: Central canal is narrowed to about 8 to 9 mm on developmental basis. There is facet degenerative change bilaterally. Neural foramina are overall adequate. C3-C4: There is disc osteophyte complex and superimposed protrusion eccentric to the left lateral recess, estimated about 2 to 3 mm AP. There is indentation upon the ventral thecal sac greatest centrally and in the left lateral recess, central canal narrowed to about 5-6 mm also with fairly severe left lateral recess stenosis. There is contact of the ventral cord greater in the left lateral recess. There is left uncovertebral degenerative change. There is bilateral facet hypertrophic change. Neural foramina are poorly characterized due to motion, likely severe narrowing of the left neural foramen, right neural foramen likely adequate. C4-C5: Central canal is narrowed to about 8 to 9 mm on developmental basis. There is fairly severe bilateral facet degenerative change. There is probable egyb-sp-nnzaqtcn narrowing of the right neural foramen and minimal narrowing on the left although neural foramina are poorly characterized. C5-C6: Central canal is adequate about 11 mm. There is severe facet degenerative change greater on the right. There is mild right uncovertebral degenerative change. There is likely moderate narrowing of the right neural foramen, left neural foramen adequate. C6-C7: There is a shallow broad posterior protrusion about 1 to 2 mm AP. Central canal is minimally narrowed about 9 mm. There is severe facet degenerative change greater on the right. There is uncovertebral degenerative change. Accurate characterization of the neural foramen is limited, probable fairly severe narrowing on the left and at least moderate narrowing on the right. C7-T1: Spinal canal is adequate. There is right uncovertebral degenerative change. There is bilateral facet degenerative change. There is probable mild narrowing of the right neural foramen, left neural foramen likely adequate. Impression: 1. There is degree of diffuse narrowing of the cervical spinal canal on a developmental basis. There is central canal stenosis about 5 to 6 mm at C3-4, also fairly severe left lateral recess stenosis in part by disc osteophyte complex and protrusion eccentric to the left lateral recess. There is a lesser degree of mild spinal stenosis C2-3, C4-5, and C6-7. 2. Accurate characterization of the neural foramina is limited in part from motion. There is suspected multilevel cervical neural foramina compromise due to facet and uncovertebral degenerative change, likely signal narrowing on the left at C3-C4 and C6-7, to a lesser degree on the right at C4-5, C5-6, and C6-7. 3. There is multilevel mild abnormal alignment as stated, multilevel facet degenerative change. Electronically signed by: Fer Mckeon MD (09/25/2019 10:28 AM) [id number]
== END ==
LOC: KCIC MRI 09:08
PROVIDERS: ATTEND Family Medicine
DX: M50.223 Other cervical disc displacement at C6-C7 level (principal); M25.78 Osteophyte, vertebrae; M48.02 Spinal stenosis, cervical region; M50.33 Other cervical disc degeneration, cervicothoracic region; M48.03 Spinal stenosis, cervicothoracic region
CPT/HCPCS: 72141

== ENCOUNTER → 2019-10-13 | Outpatient (CLI) | payer MEDICARE ==
--- NOTE | 2019-10-13 15:06 | KCIC ---
MRI Lumbar Spine without contrast History: Lumbar stenosis, low back pain, left lower extremity burning sensation Technique: Multiplanar, multi sequential noncontrast MR imaging was performed of the lumbar spine. Comparison: December 10, 2018 Findings: There is some motion degradation. There is again L4-5 interbody fusion. There is again grade 1 anterior spondylolisthesis at L4-5 and to lesser degree at L3-4. Lumbar vertebral body stature is unchanged. There is again yjyp-cu-laieubov degenerative disc disease at L3-4 and vacuum disc disease at L5-S1, mild degenerative disc disease L1-L2, and mild disc desiccation L2-3. Conus terminates at the superior aspect L2. There is again some edema of the posterior superior L4 endplate, no fluid in the intervertebral disc space. There are hemangiomas of L3 and T12 vertebral bodies. There is very mild lumbar dextroscoliosis. L1-L2: This level was not included on the axial images. Neural foramina and spinal canal are adequate. There is very minimal disc osteophyte complex. L2-L3: Neural foramina and spinal canal are adequate. There is very minimal disc osteophyte complex. There is mild facet degenerative change. L3-L4: There is again left laminectomy defect. There is facet degenerative change greater on the right. There is mild buckling of the residual right ligamentum flavum. There is disc osteophyte complex and superimposed broad protrusion as seen previously. There is minimal narrowing of the far right lateral recess. There is wdnm-kz-dievrehc left and mild right neural foramina compromise by facets disc osteophyte complex. L4-L5: There are again laminectomy defects. There is facet degenerative change. There is similar moderate narrowing of the far right lateral recess primarily from posteriorly, mild narrowing of the left lateral recess and central canal unchanged. There is again severe narrowing of the right neural foramen with impingement exiting right L4 nerve root, left neural foramen minimally narrowed. L5-S1: There is prominence of epidural fat in the lateral recesses greater on the right, some preserved subarachnoid space. There is no new displacement of the descending S1 nerve roots. There is again mild facet degenerative change. There is again very minimal posterior bulge without significant impingement of the descending nerve roots. There is again moderate to severe narrowing of the left neural foramen with contact exiting left L5 nerve root by disc osteophyte complex. Right neural foramen is overall adequate. Impression: 1. There is again variable lateral recess stenosis as described greatest on the right at L4-5. There is lumbar neural foramina compromise as stated, more significant narrowing on the right at L4-5 and on the left at L5-S1, lesser degree of narrowing left greater than right at L3-4. There is again severe narrowing of the L4-5 intervertebral disc space with degree of interbody fusion, degenerative disc disease at other levels. Electronically signed by: Fer Mckeon MD (10/13/2019 3:03 PM) [id number]
== END | disposition home or self-care (01) ==
LOC: KCIC MRI 13:34
PROVIDERS: ATTEND Family Medicine
DX: M47.816 Spondylosis without myelopathy or radiculopathy, lumbar region (principal); M51.37 Other intervertebral disc degeneration, lumbosacral region; M48.07 Spinal stenosis, lumbosacral region; M43.16 Spondylolisthesis, lumbar region; M25.78 Osteophyte, vertebrae; M41.86 Other forms of scoliosis, lumbar region
CPT/HCPCS: 72148

== ENCOUNTER 2020-01-01 08:30 | Inpatient (IN) | payer MEDICARE ==
[~2020-01-01] VITALS: Ht 162.6 cm; Wt 122.5 kg
[~2020-01-01 08:30] MED LIST changes: +AMLO-186 PO; -AMLO5TAB10 PO
[2020-01-11] MEDS ORDERED: ACET325T9 PO (18:34)
[2020-01-11] MEDS ORDERED: TURM500C4 PO (18:34)
[2020-01-11] MEDS ORDERED: TIZA4TAB2 PO (18:34)
--- NOTE | 2020-03-02 16:01 | PREOP HP ---
DATE OF SERVICE: 03/03/2020 PREOPERATIVE HISTORY AND PHYSICAL HISTORY OF PRESENT ILLNESS: The patient is a pleasant 69-year-old man who is having difficulty with neck pain and left shoulder pain on the left side. He said the neck pain was a small discomfort until this year where it became much more severe. He says his pain is 5/10. His reports that he has unsteadiness with walking. In the past, following an accident, he did undergo posterior cervical surgery. His neck pain is increased with walking and standing. Sitting helps. He also has difficulty with low back pain. PAST MEDICAL HISTORY: COPD, neck injury, hypertension, kidney disease, thyroid disease, arthritis, infection. PAST SURGICAL HISTORY: Cervical surgery in 1998; shoulder repair in 2013; hernia repair in 2013; lumbar microdecompression at L4-L5, left in 06/2014; lumbar laminectomy, L2-L3, L3-L4, left to right in 11/2016. CURRENT MEDICATIONS: Levothyroxine, losartan, atorvastatin, tamsulosin, tizanidine, Tylenol, turmeric, aspirin. ALLERGIES: No known drug allergies. FAMILY HISTORY: Alzheimer disease, aneurysm, heart disease, hypertension, cancer, headaches. SOCIAL HISTORY: Retired, . Nonsmoker currently. Drinks 4 alcoholic beverages per day. REVIEW OF SYSTEMS: A 12-point review of systems was performed and is noncontributory except that mentioned above. PHYSICAL EXAMINATION: GENERAL: Alert, pleasant, in no acute distress. HEAD: Normocephalic, atraumatic. NECK: Afgd-as-cmgkdour tenderness with palpation of the posterior cervical region, well-healed incision. SKIN: Warm and dry. MUSCULOSKELETAL: Cervical paraspinal muscle bulk is normal, cervical range of motion is restricted, normal range of motion of the upper extremities bilaterally. EXTREMITIES: No clubbing, cyanosis or edema. NEUROLOGIC: Alert and oriented x 3. Strength is 5/5 in the upper and lower extremities. Sensory is intact to light touch in the upper and lower extremities. Reflexes were 2+ and symmetric in the upper and lower extremities bilaterally. There was 2-3 beats of clonus bilaterally with unsteady gait, unable to tandem walk. IMAGING: I reviewed his cervical MRI scan from 10/2019. On that study, there is a disk osteophyte complex at C3-C4 with superimposed protrusion. The central canal measures about 5 mm along with left lateral recess narrowing at that level. I also reviewed the lumbar MRI scan. On that study at L4-L5, there is interbody fusion that is well seen. There is a grade 1 anterolisthesis of the lumbar spine that is unchanged. There are postoperative changes at L3-L4 as well as postoperative changes at L4-L5. ASSESSMENT AND PLAN: At this point, I am very concerned about his cervical stenosis and unsteadiness. I have recommended an anterior cervical diskectomy and fusion at C3-C4. We spoke about the surgery and the risks. He understands. He would like to proceed. We will make the arrangements. CARROLL RUIZ MD DR: BURTON/nia JOB#: [id number] / [id number] MTDMaryana
[2020-03-03] VITALS (9 sets, daily range): BP systolic 134–167; BP diastolic 50–100
[2020-03-03] MEDS ORDERED: BACITRACIN 50,000 UNIT in IV NORMAL SALINE 1000ML BAG 1,000 ML IRR ONE (06:00)
[2020-03-03] MEDS ORDERED: fentaNYL PF VIAL 100 MCG/2 ML VIAL IV PRN ×2 (07:00)
[2020-03-03] MEDS ORDERED: MORPHINE SULFATE 2 MG/ML VIAL. IV PRN (07:00)
[2020-03-03] MEDS ORDERED: PROCHLORPERAZINE 10 MG/2 ML VIAL. IV PRN (07:00)
[2020-03-03] MEDS ORDERED: IV RINGERS,LACTATED 1000ML 1,000 ML IV SCH (07:00)
[2020-03-03] MEDS ORDERED: HYDROmorphone 2 MG/ML VIAL IV PRN (07:00)
[2020-03-03] MEDS ORDERED: ONDANSETRON PF 4 MG/2 ML VIAL. IV PRN (07:00)
[2020-03-03] MEDS ORDERED: GELATIN SPONGE SIZE 100. ONE (07:04)
[2020-03-03] MEDS ORDERED: LIDOCAINE 2%/EPI 1:100,000 20 ML VIAL. ONE (07:05)
[2020-03-03] MEDS ORDERED: BUPIVACAINE-EPI 0.5%-1:200000 MPF 30 ML VIAL. ONE (07:05)
[2020-03-03] MEDS ORDERED: THROMBIN TOPICAL 20,000 UNIT SPRAY.SYRN KIT TP ONE (07:05)
[2020-03-03] MEDS ORDERED: PROPOFOL 100 ML IV ONE (07:58)
[2020-03-03] MEDS ORDERED: fentaNYL PF VIAL 100 MCG/2 ML VIAL ONE ×2 (08:11→12:55)
[2020-03-03] MEDS ORDERED: ROCURONIUM 50 MG/5 ML VIAL. ONE (08:12)
[2020-03-03] MEDS ORDERED: LIDOCAINE 2% PF 5 ML VIAL. ONE (08:12)
[2020-03-03] MEDS ORDERED: DEXAMETHASONE SOD PHOS 20 MG/5 ML VIAL. ONE (08:12)
[2020-03-03] MEDS ORDERED: REMIFENTANIL 2 MG VIAL. IV ONE (08:12)
[2020-03-03] MEDS ORDERED: MIDAZOLAM HCL/PF 2 MG/2 ML VIAL. ONE (08:12)
[2020-03-03] MEDS ORDERED: PROPOFOL 10 MG/ML (20ML) VIAL. IV ONE (08:12)
[2020-03-03] MEDS ORDERED: ONDANSETRON PF 4 MG/2 ML VIAL. ONE (08:12)
[2020-03-03] MEDS ORDERED: SUCCINYLCHOLINE 200 MG/10 ML VIAL. ONE (08:16)
[2020-03-03] MEDS ORDERED: PHENYLEPHRINE 10 MG/ML VIAL. ONE (08:20)
[2020-03-03 08:30] LABS: CREATININE 1.7 mg/dL (0.7-1.3); GFR 39.9; POTASSIUM 4.7 mmol/L (3.5-5.1)
[2020-03-03 08:32] LABS: HEMATOCRIT 34.7 % (39.0-53.0); HEMOGLOBIN 11.9 g/dL (13.0-17.5); RED BLOOD COUNT 3.6 x10^6/uL (4.30-5.70); RED CELL DISTRIBUTION WIDTH 13.2 % (11.5-14.5); WHITE BLOOD COUNT 5.4 x10^3/uL (4.0-11.0)
[2020-03-03 08:34] LABS: ALBUMIN 3.8 g/dL (3.4-5.0); ALBUMIN/GLOBULIN RATIO 1.2 (1.0-1.7); TOTAL BILIRUBIN 0.7 mg/dL (0.2-1.0); TOTAL PROTEIN 6.9 g/dL (6.4-8.2)
[2020-03-03] MEDS ORDERED: GLYCOPYRROLATE 1 MG/5 ML VIAL. ONE (09:11)
[2020-03-03] MEDS ORDERED: REMIFENTANIL 1 MG VIAL. IV ONE (10:21)
[2020-03-03] MEDS ORDERED: PROPOFOL 50 ML IV ONE (11:08)
[2020-03-03] MEDS ORDERED: tiZANidine 4 MG TABLET. PO PRN (12:15)
[2020-03-03] MEDS ORDERED: diphenhydrAMINE HCL 25 MG CAPSULE PO PRN (12:15)
[2020-03-03] MEDS ORDERED: METHOCARBAMOL 750 MG TABLET PO PRN (12:15)
[2020-03-03] MEDS ORDERED: MAGNESIUM HYDROXIDE 2,400 MG/30 ML ORAL.SUSP. PO PRN (12:15)
[2020-03-03] MEDS ORDERED: HYDROcodone/APAP 5/325MG 1 TAB TABLET PO PRN (12:15)
[2020-03-03] MEDS ORDERED: CALCIUM CARBONATE 500 MG TAB.CHEW PO PRN (12:15)
[2020-03-03] MEDS ORDERED: 0.9 % SODIUM CHLORIDE 10 ML DISP.SYRIN. IV PRN (12:15)
[2020-03-03] MEDS ORDERED: NALOXONE 0.4 MG/ML VIAL. IV PRN (12:15)
[2020-03-03] MEDS ORDERED: fentaNYL PF VIAL 100 MCG/2 ML VIAL IVP PRN (12:15)
[2020-03-03] MEDS ORDERED: MAG HYDROX/ALUMINUM HYD/SIMETH 30 ML ORAL.SUSP PO PRN (12:15)
[2020-03-03] MEDS ORDERED: ACETAMINOPHEN 325 MG TABLET. PO PRN ×2 (12:15)
[2020-03-03] MEDS ORDERED: hydrALAZINE 20 MG/ML VIAL. ONE (13:46)
[2020-03-03] MEDS: hydrALAZINE 20 MG/ML VIAL. IVP PRN ×3 (13:54→15:52)
--- NOTE | 2020-03-03 14:48 | NUR ---
Arrived to unit by bed from PACU. Alert and oriented x's 4. No c/o pain at this time. Anterior neck dressing is d/i with soft collar. IVF's intact and infusing. O2 at 2l per n/c. KEIKO's and ERIC's on bilaterally. Oriented to room and controls. Side rails up x's 2 with call light in reach. at bedside. Cont. monitor.
[2020-03-03] MEDS: POTASSIUM CL 20MEQ D5-0.45NACL 1,000 ML IV SCH (15:13)
--- NOTE | 2020-03-03 15:30 | NUR ---
Attempted to void and is unable to. Restless. "I feel like I have to go but can't". Pt attempted several time to void in PACU but was unable. St. cath and got 800cc of clear straw color urine. Pt stated felt much better. Did not take Flomax this am. Will cont. monitor.
[2020-03-03] MEDS: LOSARTAN POTASSIUM 50 MG TABLET. PO SCH (15:49)
[2020-03-03] MEDS: TAMSULOSIN 0.4 MG CAP.ER.24H. PO SCH (15:49)
--- NOTE | 2020-03-03 15:50 | NUR ---
BP 180/95 with heart rate 70. Gave hydralazine IV and losartan po with Flomax. Cont. monitor BP
--- NOTE | 2020-03-03 17:15 | NUR ---
BP getting better 157/88. Cont. monitor.
[2020-03-03] MEDS: ceFAZolin SODIUM IV Push 1 GM VIAL. IVP SCH (17:33)
--- NOTE | 2020-03-03 18:12 | NUR ---
Pt here from 454. Rates pain at 0/10, soft cervical collar in place. Pt. given call light.
[2020-03-03] MEDS ORDERED: TURMERIC PO SCH (21:00)
[2020-03-03] MEDS ORDERED: TURMERIC ROOT EXTRACT PO SCH (21:00)
[2020-03-03] MEDS ORDERED: ATORVASTATIN CALCIUM 20 MG TABLET PO SCH (21:00)
[2020-03-03] MEDS: DOCUSATE SODIUM 100 MG CAPSULE. PO SCH (21:06)
[2020-03-03] MEDS: HYDROcodone/APAP 5/325MG 1 TAB TABLET PO PRN (21:11)
[2020-03-04] MEDS: ceFAZolin SODIUM IV Push 1 GM VIAL. IVP SCH ×2 (01:20→07:58)
[2020-03-04] MEDS: HYDROcodone/APAP 5/325MG 1 TAB TABLET PO PRN ×2 (01:32→06:16)
[2020-03-04 03:02] VITALS: BP 150/74
[2020-03-04] MEDS: POTASSIUM CL 20MEQ D5-0.45NACL 1,000 ML IV SCH (04:22)
[2020-03-04] MEDS ORDERED: LEVOTHYROXINE 75 MCG TABLET PO SCH (06:00)
[2020-03-04 07:00] VITALS: BP 121/63
[2020-03-04] MEDS ORDERED: ceFAZolin SODIUM 3 GM in IV DEXTROSE 5% 100ML 100 ML IV PRN (07:00)
[2020-03-04] MEDS: DOCUSATE SODIUM 100 MG CAPSULE. PO SCH (07:58)
[2020-03-04] MEDS: TAMSULOSIN 0.4 MG CAP.ER.24H. PO SCH (07:58)
[2020-03-04] MEDS: LOSARTAN POTASSIUM 50 MG TABLET. PO SCH (08:07)
[2020-03-04] MEDS ORDERED: ASPIRIN ENTERIC COATED 81 MG TABLET.DR. PO SCH (09:00)
--- NOTE | 2020-03-04 09:00 | NUR ---
Doing well this am. Anxious to go home today. Up and ambulating in room. Cont. monitor.
[2020-03-04] MEDS ORDERED: HYDR-2761 PO (09:47)
[2020-03-04] MEDS ORDERED: DOCU-153 PO (09:47)
[2020-03-04] MEDS ORDERED: METH750T2 PO (09:47)
--- NOTE | 2020-03-04 09:49 | DISCH ---
DISCHARGE INSTRUCTIONS Condition on Discharge Condition on Discharge: Stable Activity After Discharge Activity Instructions for Disc: Activity as tolerated, Avoid exertion, Prog ressive ambulation Other activity instructions: no driving for a week, soft collar for comfort Bathing Instructions: Shower-keep dressing dry, No Tub Bath until see Lifting Instructions after Dis: No heavy lifting, No pulling or pushing, Do not lift >10 pounds Exercise Instruction after Dis: Progress as tolerated Weight Bearing Status after Di: No restrictions Diet after Discharge Diet after Discharge: Low Sodium 2 gm Additional Diet Restrictions: resume home diet Diet Texture: Regular Liquid Texture: Thin Liquid Swallowing Supervision: None needed Wound Incision Care Wound/Incision Care: Ice to area for comfort, Keep wound/cast CDI, Change dressing, May get incision wet Other wound/incision instructi: may remove dressing in 48hours, no soaking Wound Care Equipment: Dressings Contacting the DRLaly after DC Call your doctor for: Concerns you may have Follow-Up Follow up with: Dr. Ruiz's nurse in 2 weeks [phone] Treatment/Equipment after DC Adaptive Equipment Issued: None CARROLL RUIZ MD Mar 04, 2020 09:49
[2020-03-04 11:29] VITALS: BP 102/45
--- NOTE | 2020-03-04 13:00 | NUR ---
Discharge instructions given with prescriptions. Answered questions and concerns. Verbalized understanding. Pt discharged home accompanied by . Escorted out by w/c.
--- NOTE | 2020-03-04 13:11 | PDOC ---
PROGRESS NOTES Date of Service DATE: 03/04/20 TIME: 13:09 Subjective Subjective POD #1 S/P ACDF C3-4 neck sore Objective Objective Vital Signs Date Time Temp Pulse Resp B/P (MAP) Pulse Ox O2 Delivery O2 Flow Rate FiO2 03/04/20 11:29 98.0 65 18 102/45 (64) 94 Room Air 98.0 03/03/20 18:00 2.0 Intake and Output 03/04/20 07:00 Intake Total 5310 ml Output Total 1175 ml Balance 4135 ml Intake Oral 1460 ml IV Total 2950 ml Other 900 ml Output Urine Total 1150 ml Estimated Blood Loss 25 ml # Voids 1 Physical Exam General: Alert, Cooperative, No acute distress, Other (voice clear) MUSCULOSKELETAL: Other (PUTNAM) Neck: Other (soft collar on) Neuro: Normal speech Skin: Other (dressing C,D, I, Flat) Plan Plan of Care dc home f/u 2 weeks Comment Review of Relevant I have reviewed the following items luis (where applicable) has been applied. Labs Laboratory Tests Test 03/03/20 08:03 White Blood Count 5.4 x10^3/uL (4.0-11.0) Red Blood Count 3.60 x10^6/uL (4.30-5.70) Hemoglobin 11.9 g/dL (13.0-17.5) Hematocrit 34.7 % (39.0-53.0) Mean Corpuscular Volume 96 fL (79-100) Mean Corpuscular Hemoglobin 33 pg (25-35) Mean Corpuscular Hemoglobin Concent 34 g/dL (31-37) Red Cell Distribution Width 13.2 % (11.5-14.5) Platelet Count 200 x10^3/uL (140-400) Sodium Level 139 mmol/L (136-145) Potassium Level 4.7 mmol/L (3.5-5.1) Chloride Level 102 mmol/L (98-107) Carbon Dioxide Level 29 mmol/L (21-32) Anion Gap 8 (6-14) Blood Urea Nitrogen 22 mg/dL (8-26) Creatinine 1.7 mg/dL (0.7-1.3) Estimated GFR (Cockcroft-Gault) 39.9 BUN/Creatinine Ratio 13 (6-20) Glucose Level 96 mg/dL (70-99) Calcium Level 9.0 mg/dL (8.5-10.1) Total Bilirubin 0.7 mg/dL (0.2-1.0) Aspartate Amino Transf (AST/SGOT) 21 U/L (15-37) Alanine Aminotransferase (ALT/SGPT) 35 U/L (16-63) Alkaline Phosphatase 74 U/L (46-116) Total Protein 6.9 g/dL (6.4-8.2) Albumin 3.8 g/dL (3.4-5.0) Albumin/Globulin Ratio 1.2 (1.0-1.7) Medications Current Medications Bacitracin 33384 unit/Sodium Chloride 1,000 ml @ 1,000 mls/hr 1X ONCE IRR Last administered on 03/03/20at 09:59; Start 03/03/20 at 06:00; Stop 03/03/20 at 06:59; Status DC Ondansetron HCl (Zofran) 4 mg PRN Q6HRS PRN IV NAUSEA/VOMITING; Start 03/03/20 at 07:00; Stop 03/03/20 at 20:00; Status DC Fentanyl Citrate (Fentanyl 2ml Vial) 25 mcg PRN Q5MIN PRN IV MILD PAIN 1-3; Start 03/03/20 at 07:00; Stop 03/03/20 at 20:00; Status DC Fentanyl Citrate (Fentanyl 2ml Vial) 50 mcg PRN Q5MIN PRN IV MODERATE TO SEVERE PAIN Last administered on 03/03/20at 13:12; Start 03/03/20 at 07:00; Stop 03/03/20 at 22:00; Status DC Morphine Sulfate (Morphine Sulfate) 1 mg PRN Q10MIN PRN IV SEVERE PAIN 7-10; Start 03/03/20 at 07:00; Stop 03/03/20 at 20:00; Status DC Ringer's Solution 1,000 ml @ 30 mls/hr Q24H IV Last administered on 03/03/20at 08:20; Start 03/03/20 at 07:00; Stop 03/03/20 at 18:59; Status DC Hydromorphone HCl (Dilaudid) 0.5 mg PRN Q10MIN PRN IV SEV PAIN, Second choice; Start 03/03/20 at 07:00; Stop 03/03/20 at 20:00; Status DC Prochlorperazine Edisylate (Compazine) 5 mg PACU PRN PRN IV NAUSEA, MRX1; Start 03/03/20 at 07:00; Stop 03/03/20 at 20:00; Status DC Cefazolin Sodium/ Dextrose 50 ml @ 100 mls/hr 1X PREOP PRN IV PRIOR TO P ROCEDURE; Start 03/03/20 at 06:00; Stop 03/03/20 at 18:00; Status Cancel Cefazolin Sodium 3 gm/Dextrose 100 ml @ 200 mls/hr 1X PREOP PRN IV PRIOR TO PROCEDURE Last administered on 03/03/20at 09:18; Start 03/04/20 at 07:00; Stop 03/04/20 at 07:01; Status DC Gelatin (Gelfoam Size 100) 1 each STK-MED ONCE .ROUTE Last administered on 03/03/20at 09:59; Start 03/03/20 at 07:04; Stop 03/03/20 at 07:05; Status DC Lidocaine/ Epinephrine (LIDOCAINE 2%-EPI 1:100,000 multi-dose) 20 ml STK-MED ONCE .ROUTE ; Start 03/03/20 at 07:05; Stop 03/03/20 at 07:05; Status DC Thrombin 20,000 unit STK-MED ONCE TP Last administered on 03/03/20at 09:59; Start 03/03/20 at 07:05; Stop 03/03/20 at 07:05; Status DC Bupivacaine HCl/ Epinephrine Bitart (Sensorcain-Epi 0.5%-1:700898 Mpf) 30 ml STK-MED ONCE .ROUTE Last administered on 03/03/20at 09:59; Start 03/03/20 at 07:05; Stop 03/03/20 at 07:05; Status DC Propofol 100 ml @ As Directed STK-MED ONCE IV ; Start 03/03/20 at 07:58; Stop 03/03/20 at 07:59; Status DC Fentanyl Citrate (Fentanyl 2ml Vial) 100 mcg STK-MED ONCE .ROUTE ; Start 03/03/20 at 08:11; Stop 03/03/20 at 08:12; Status DC Rocuronium [place] (Zemuron) 50 mg STK-MED ONCE .ROUTE ; Start 03/03/20 at 08:12; Stop 03/03/20 at 08:12; Status DC Midazolam HCl (Versed) 2 mg STK-MED ONCE .ROUTE ; Start 03/03/20 at 08:12; Stop 03/03/20 at 08:12; Status DC Remifentanil HCl (Ultiva) 2 mg STK-MED ONCE IV ; Start 03/03/20 at 08:12; Stop 03/03/20 at 08:12; Status DC Propofol (Diprivan) 200 mg STK-MED ONCE IV ; Start 03/03/20 at 08:12; Stop 03/03/20 at 08:13; Status DC Lidocaine HCl (Lidocaine Pf 2% Vial) 5 ml STK-MED ONCE .ROUTE ; Start 03/03/20 at 08:12; Stop 03/03/20 at 08:13; Status DC Dexamethasone Sodium Phosphate (Decadron) 20 mg STK-MED ONCE .ROUTE ; Start 03/03/20 at 08:12; Stop 03/03/20 at 08:13; Status DC Ondansetron HCl (Zofran) 4 mg STK-MED ONCE .ROUTE ; Start 03/03/20 at 08:12; Stop 03/03/20 at 08:13; Status DC Succinylcholine Chloride (Anectine) 200 mg STK-MED ONCE .ROUTE ; Start 03/03/20 at 08:16; Stop 03/03/20 at 08:16; Status DC Phenylephrine HCl (Al-Synephrine Inj) 10 mg STK-MED ONCE .ROUTE ; Start 03/03/20 at 08:20; Stop 03/03/20 at 08:20; Status DC Glycopyrrolate (Robinul) 1 mg STK-MED ONCE .ROUTE ; Start 03/03/20 at 09:11; Stop 03/03/20 at 09:11; Status DC Remifentanil HCl (Ultiva) 1 mg STK-MED ONCE IV ; Start 03/03/20 at 10:21; Stop 03/03/20 at 10:22; Status DC Propofol 50 ml @ As Directed STK-MED ONCE IV ; Start 03/03/20 at 11:08; Stop 03/03/20 at 11:08; Status DC Acetaminophen (Tylenol) 650 mg PRN DAILY PRN PO PAIN; Start 03/03/20 at 12:15; Stop 03/04/20 at 10:50; Status DC Aspirin (Ecotrin) 81 mg DAILY PO Last administered on 03/04/20at 07:58; Start 03/04/20 at 09:00 Atorvastatin Calcium (Lipitor) 20 mg HS PO Last administered on 03/03/20at 21:06; Start 03/03/20 at 21:00 Levothyroxine Sodium (Synthroid) 75 mcg DAILY06 PO Last administered on 03/04/20at 06:04; Start 03/04/20 at 06:00 Losartan Potassium (Cozaar) 50 mg DAILY PO Last administered on 03/04/20at 08:07; Start 03/03/20 at 15:41 Tamsulosin HCl (Flomax) 0.4 mg DAILY PO Last administered on 03/04/20at 07:58; Start 03/03/20 at 15:41 Tizanidine HCl (Zanaflex) 2 mg PRN Q8HRS PRN PO MUSCLE SPASMS; Start 03/03/20 at 12:15 Non-Formulary Medication (Turmeric/ Turmeric Root Extract (Turmeric 500 mg Capsu le)) 1,000 mg BID PO ; Start 03/03/20 at 21:00; Status UNV Fentanyl Citrate (Fentanyl 2ml Vial) 50 mcg PRN Q2HR PRN IVP PAIN; Start 03/03/20 at 12:15 Acetaminophen (Tylenol) 650 mg PRN Q6HRS PRN PO MILD PAIN / TEMP > 100.3'F; Start 03/03/20 at 12:15 Al Hydroxide/Mg Hydroxide (Mylanta Plus Xs) 30 ml PRN Q3HRS PRN PO HEARTBURN / GAS; Start 03/03/20 at 12:15 Calcium Carbonate/ Glycine (Tums) 500 mg PRN Q3HRS PRN PO INDIGESTION; Start 03/03/20 at 12:15 Diphenhydramine HCl (Benadryl) 25 mg PRN Q6HRS PRN PO ITCHING; Start 03/03/20 at 12:15 Naloxone HCl (Narcan) 0.1 mg PRN Q2MIN PRN IV SEE COMMENTS; Start 03/03/20 at 12:15 Sodium Chloride (Normal Saline Flush) 3 ml QSHIFT PRN IV AFTER MEDS AND BLOOD DRAWS; Start 03/03/20 at 12:15 Potassium Chloride/Dextrose/ Sod Cl 1,000 ml @ 75 mls/hr [id number] IV Last administered on 03/04/20at 04:22; Start 03/03/20 at 15:00 Acetaminophen/ Hydrocodone Bitart (Lortab 5/325) 1 tab PRN Q4HRS PRN PO MODERATE PAIN; Start 03/03/20 at 12:15 Acetaminophen/ Hydrocodone Bitart (Lortab 5/325) 2 tab PRN Q4HRS PRN PO SEVERE PAIN Last administered on 03/04/20at 06:16; Start 03/03/20 at 12:15 Methocarbamol (Robaxin) 750 mg TID PRN PO MUSCLE SPASMS, 2ND CHOICE Last administered on 03/04/20at 11:05; Start 03/03/20 at 12:15 Docusate Sodium (Colace) 100 mg BID PO Last administered on 03/04/20at 07:58; Start 03/03/20 at 21:00 Magnesium Hydroxide (Milk Of Magnesia) 2,400 mg PRN Q12HR PRN PO CONSTIPATION; Start 03/03/20 at 12:15 Cefazolin Sodium (Ancef) 1 gm Q8H IVP Last administered on 03/04/20at 07:58; Start 03/03/20 at 17:00; Stop 03/04/20 at 09:01; Status DC Fentanyl Citrate (Fentanyl 2ml Vial) 100 mcg STK-MED ONCE .ROUTE ; Start 03/03/20 at 12:55; Stop 03/03/20 at 12:55; Status DC Hydralazine HCl (Apresoline Inj) 20 mg STK-MED ONCE .ROUTE ; Start 03/03/20 at 13:46; Stop 03/03/20 at 13:46; Status DC Hydralazine HCl (Apresoline Inj) 5 mg PRN Q10MIN PRN IVP ELEVATED BP, SEE COMMENTS Last administered on 03/03/20at 15:52; Start 03/03/20 at 14:00 Active Scripts Active Methocarbamol 750 Mg Tablet 750 Mg PO TID PRN Hydrocodone-Apap 5-325 (Hydrocodone Bit/Acetaminophen) 1 Tab Tablet 1 Tab PO PRN Q4HRS PRN Dok (Docusate Sodium) 100 Mg Capsule 100 Mg PO BID Reported Turmeric 500 mg Capsule (Turmeric/Turmeric Root Extract) 1 Each Capsule 1,000 Mg PO BID Tylenol (Acetaminophen) 325 Mg Tablet 2 Tab PO PRN DAILY PRN Tizanidine Hcl 4 Mg Tablet 2 Mg PO PRN Q8HRS PRN Aspir 81 (Aspirin) 81 Mg Tablet.dr 81 Mg PO DAILY Losartan Potassium 50 Mg Tablet 1 Tab PO DAILY Levothyroxine Sodium 75 Mcg Tablet 1 Tab PO DAILY Atorvastatin Calcium 20 Mg Tablet 20 Mg PO HS Tamsulosin Hcl 0.4 Mg Cap.er.24h 1 Cap PO DAILY Vitals/I & O Vital Sign - Last 24 Hours 03/03/20 03/03/20 03/03/20 03/03/20 13:10 13:12 13:25 13:54 Temp 97.3 97.3 97.3 97.3 Pulse 68 76 65 Resp B/P (MAP) 180/91 177/74 197/87 Pulse Ox 97 95 98 O2 Delivery Simple Mask Simple Mask Nasal Cannula O2 Flow Rate 8 8.0 2 03/03/20 03/03/20 03/03/20 03/03/20 13:55 14:05 14:10 14:25 Temp 97.3 97.3 98.1 97.3 97.3 98.1 Pulse 76 66 87 88 Resp B/P (MAP) 176/103 176/103 142/81 152/85 Pulse Ox 95 95 95 O2 Delivery Nasal Cannula Nasal Cannula Nasal Cannula O2 Flow Rate 2 2 2 03/03/20 03/03/20 03/03/20 03/03/20 14:50 15:00 15:15 15:30 Temp 97.7 97.7 Pulse 76 80 Resp 22 B/P (MAP) 167/86 (113) 159/100 (119) 164/88 (113) Pulse Ox 96 O2 Delivery Nasal Cannula Nasal Cannula O2 Flow Rate 2.0 2.0 03/03/20 03/03/20 03/03/20 03/03/20 15:45 15:49 15:52 16:15 Temp 98.0 98.0 Pulse 70 70 82 Resp 20 B/P (MAP) 155/84 (107) 180/95 180/95 164/90 (114) Pulse Ox 95 O2 Delivery Nasal Cannula O2 Flow Rate 2.0 103/03/20 03/03/20 03/03/20 17:15 18:00 19:00 20:00 Temp 98.3 98.0 97.8 98.3 98.0 97.8 Pulse 80 82 71 Resp 18 20 18 B/P (MAP) 157/88 (111) 148/77 (100) 134/50 (78) Pulse Ox 95 95 96 O2 Delivery Nasal Cannula Nasal Cannula Room Air Room Air O2 Flow Rate 2.0 2.0 03/03/20 03/03/20 03/03/20 03/04/20 21:11 22:11 23:00 01:32 Temp 97.6 97.6 Pulse 74 Resp 20 20 18 20 B/P (MAP) 134/75 (94) Pulse Ox 92 O2 Delivery Room Air Room Air Room Air BiPAP/CPAP 03/04/20 03/04/20 03/04/20 03/04/20 02:32 03:02 06:16 07:00 Temp 97.9 97.6 97.9 97.6 Pulse 72 70 Resp 20 18 20 18 B/P (MAP) 150/74 (99) 121/63 (82) Pulse Ox 94 96 O2 Delivery BiPAP/CPAP Room Air Room Air Room Air 03/04/20 03/04/20 03/04/20 03/04/20 07:20 07:40 08:07 11:29 Temp 98.0 98.0 Pulse 65 65 Resp 18 B/P (MAP) 150/87 102/45 (64) Pulse Ox 94 O2 Delivery Room Air Room Air Room Air Intake and Output 03/03/20 03/03/20 03/04/20 15:00 23:00 07:00 Intake Total 2150 ml 1360 ml 1800 ml Output Total 325 ml 850 ml 0 ml Balance 1825 ml 510 ml 1800 ml Justifications for Admission Other Justification LEON TELLEZ [employer] Mar 04, 2020 13:11
--- NOTE | 2020-03-08 19:52 | OP ---
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 OPERATION PERFORMED: Anterior cervical microdiscectomy, C3-C4; anterior cervical interbody fusion, C3-C4 with interbody cage packed with allograft bone; anterior cervical plate C3-C4. The operation was done with EMG monitoring, SSEP monitoring, fluoroscopy, microscopic dissection, motor evoked potentials. SURGEON: Cole Ruiz M.D. ANIMAL BIOLOGIST: ANNA Rosa assisted with the surgery. She assisted with the exposure, the microdiscectomy and placed an interbody fusion cages as well as the closure. SPECIMEN: Disc and decompression. OPERATIVE INDICATIONS: The patient is a pleasant 69-year-old man who developed intractable neck pain along with left shoulder pain. This problem became severe. He noted unsteadiness with walking and had the above-mentioned findings on imaging studies. I recommended an anterior cervical microdiscectomy and fusion. I discussed with him the surgery and the risks involved. He understood and he wished to go ahead. DESCRIPTION OF PROCEDURE: Following general endotracheal anesthesia, the patient was positioned supine on the operating room table. His neck was in a neutral position. The anterior cervical region was clipped, prepped and draped in the standard fashion. KEIKO hose and AV impulse boots have been applied for deep venous thrombosis prophylaxis. The microscope was draped. Fluoroscopy was draped and brought into the field and monitoring was established. Ancef 3 grams was given less than 1 hour prior to initiation of the surgery. Using fluoroscopic guidance, incision was made from the midline around to the right side in the skin crease just slightly below C3-C4. I dissected down through skin and subcutaneous tissue. I dissected around the medial aspect of the sternocleidomastoid and carotid artery sheath down the anterior cervical vertebral bodies. I reflected the trachea and esophagus contralaterally. I confirmed my position fluoroscopically. I placed the cervical retractors wedged in the longus colli muscle and placed cervical distraction pins in C3 and C4 and I did take fluoroscopic images to confirm my position. I brought in the microscope during this time and using microscopic technique, I incised the anterior annulus. I distracted the disc space. I scraped away the cartilaginous endplate and performed a generous discectomy posteriorly. I trimmed the annulus and opened the ligament; there was a large subligamentous disc herniation, which was central and right-sided and I teased this back and removed this fragment in multiple pieces. I worked and as I worked, I was able to get an excellent decompression bilaterally. I then measured and placed a 7 mm interbody fusion cage, which was packed with allograft bone. Once this was in position, I brought in a 12 mm [place] plate and placed four screws, which were then locked into position. Fluoroscopic images looked quite good. I removed the retractors and assured myself of excellent hemostasis. Then, after irrigating copiously, I closed the wound in layers with absorbable suture and skin was closed with 4-0 subcuticular stitch. I was very pleased with the surgery. The patient left the operating room in excellent condition. COLE RUIZ MD DR: RYAN/nia JOB#: [id number] / [id number] MAYRA
== END 2020-03-04 13:00 | disposition home or self-care (01) | DRG 472 ==
LOC: OPSVCIP 03-03 07:11 → 4 SOUTHEST 03-03 14:48 → 4 NORTH 03-03 18:13
PROVIDERS: ADMIT Neurological Surgery; ATTEND Neurological Surgery
PROC: 0RB30ZZ Excision of Cervical Vertebral Disc, Open Approach (ICD-10-PCS; 2020-03-03)
PROC: 4A11X4G Monitoring of Peripheral Nervous Electrical Activity, Intraoperative, External Approach (ICD-10-PCS; 2020-03-03)
PROC: 0RG10A0 Fusion of Cervical Vertebral Joint with Interbody Fusion Device, Anterior Approach, Anterior Column, Open Approach (ICD-10-PCS; principal; 2020-03-03 08:30)
PROC: 5A09357 Assistance with Respiratory Ventilation, Less than 24 Consecutive Hours, Continuous Positive Airway Pressure (ICD-10-PCS; 2020-03-04)
DX: M48.02 Spinal stenosis, cervical region (principal); G99.2 Myelopathy in diseases classified elsewhere; Z82.0 Family history of epilepsy and other diseases of the nervous system; Z82.49 Family history of ischemic heart disease and other diseases of the circulatory system; J44.9 Chronic obstructive pulmonary disease, unspecified; I10 Essential (primary) hypertension; M19.90 Unspecified osteoarthritis, unspecified site; M25.78 Osteophyte, vertebrae
CPT/HCPCS: 36415; 76000; 80053; 85025; 85027; 87641; C1713; C1821; J0330; J0360; J0690; J1100; J2250; J2370; J2405; J2704; J3010; J3480; J3490; J7030; J7060; J7120; U0003; G0378

== ENCOUNTER → 2020-01-11 | Outpatient (CLI) | payer MEDICARE ==
[~2020-01-11] MED LIST changes: +ACET325T9 PO; +TIZA4TAB2 PO; +TURM500C4 PO
--- NOTE | 2020-01-11 15:26 | EKG ---
[facility] [address] [place] [address] Test Date: 2020-01-11 Test Time: 15:22:37 Pat Name: AMAURI TORRES Department: Room: Gender: Insulation Worker Apprentice: : [id number] Requested By: CARROLL RUIZ Order Number: [id number] Reading MD: Kurtis Carr Measurements Intervals [place] Rate: 54 P: 36 CO: 188 QRS: -12 QRSD: 88 T: 43 QT: 412 QTc: 392 Interpretive Statements SINUS RHYTHM LEFTWARD AXIS LOW LIMB LEAD VOLTAGE Electronically Signed On 01-12-2020 9:57:06 FEDERAL APPELLATE CLERK by Kurtis Carr
[2020-01-11 16:13] LABS: BASO % 1 % (0-3); EOS # 0.3 x10^3/uL (0.0-0.7); EOS % 4 % (0-3); HEMATOCRIT 35.4 % (39.0-53.0); HEMOGLOBIN 12.3 g/dL (13.0-17.5); LYMPH # 1.4 x10^3/uL (1.0-4.8); LYMPH % 22 % (24-48); MEAN CORPUSCULAR HEMOGLOBIN 34 pg (25-35); MEAN CORPUSCULAR HGB CONC 35 g/dL (31-37); MEAN CORPUSCULAR VOLUME 97 fL (79-100); MONO # 0.7 x10^3/uL (0.0-1.1); MONO % 12 % (0-9); NEUT % 62 % (31-73); PLATELET COUNT 217 x10^3/uL (140-400); RED BLOOD COUNT 3.67 x10^6/uL (4.30-5.70); WHITE BLOOD COUNT 6.5 x10^3/uL (4.0-11.0)
[2020-01-11 16:48] LABS: ALBUMIN 3.8 g/dL (3.4-5.0); ALBUMIN/GLOBULIN RATIO 1.2 (1.0-1.7); CALCIUM 8.8 mg/dL (8.5-10.1); CREATININE 1.3 mg/dL (0.7-1.3); GFR 54.4; POTASSIUM 4.6 mmol/L (3.5-5.1); TOTAL BILIRUBIN 0.6 mg/dL (0.2-1.0); TOTAL PROTEIN 6.9 g/dL (6.4-8.2)
--- NOTE | 2020-01-12 13:46 | NUR ---
IP: Notified Dr Erazo concerning the positive COVID test on the pt. Dr Erazo has spoke to the patient and rescheduled the case.
== END ==
LOC: SURGPAT 13:36
PROVIDERS: ATTEND Neurological Surgery
DX: Z01.812 Encounter for preprocedural laboratory examination (principal); U07.1 COVID-19; M54.12 Radiculopathy, cervical region; M48.02 Spinal stenosis, cervical region; M54.2 Cervicalgia
CPT/HCPCS: 36415; 80053; 85025; 87641; 93005; U0003

== ENCOUNTER → 2020-02-03 | Outpatient (CLI) | payer MEDICARE ==
--- NOTE | 2020-02-06 14:49 | NUR ---
IP: Informed pt of positive COVID test. Pt tested positive 6 weeks ago. Informed Paz PHILIP, She will followup with pt on Saturday.
== END ==
LOC: LAB 10:55
PROVIDERS: ATTEND Neurological Surgery
DX: Z01.812 Encounter for preprocedural laboratory examination (principal); U07.1 COVID-19; M16.12 Unilateral primary osteoarthritis, left hip
CPT/HCPCS: U0003

== ENCOUNTER → 2020-02-29 | Outpatient (CLI) | payer MEDICARE ==
[2020-02-25 08:29] VITALS: BP 147/80
[2020-02-29 10:40] LABS: ALBUMIN 3.8 g/dL (3.4-5.0); ALBUMIN/GLOBULIN RATIO 1.2 (1.0-1.7); CALCIUM 9.1 mg/dL (8.5-10.1); CREATININE 1.4 mg/dL (0.7-1.3); POTASSIUM 5.1 mmol/L (3.5-5.1); TOTAL BILIRUBIN 0.8 mg/dL (0.2-1.0)
[2020-02-29 10:41] LABS: BASO % 1 % (0-3); EOS # 0.3 x10^3/uL (0.0-0.7); EOS % 6 % (0-3); HEMATOCRIT 35.7 % (39.0-53.0); HEMOGLOBIN 12.2 g/dL (13.0-17.5); LYMPH # 1.3 x10^3/uL (1.0-4.8); LYMPH % 24 % (24-48); MEAN CORPUSCULAR HEMOGLOBIN 33 pg (25-35); MEAN CORPUSCULAR HGB CONC 34 g/dL (31-37); MEAN CORPUSCULAR VOLUME 96 fL (79-100); MONO # 0.6 x10^3/uL (0.0-1.1); MONO % 10 % (0-9); NEUT # 3.2 x10^3/uL (1.8-7.7); NEUT % 60 % (31-73); PLATELET COUNT 206 x10^3/uL (140-400); RED BLOOD COUNT 3.71 x10^6/uL (4.30-5.70); RED CELL DISTRIBUTION WIDTH 13.1 % (11.5-14.5); WHITE BLOOD COUNT 5.4 x10^3/uL (4.0-11.0)
== END ==
LOC: LAB 09:51
PROVIDERS: ATTEND Neurological Surgery
DX: Z01.812 Encounter for preprocedural laboratory examination (principal); M48.02 Spinal stenosis, cervical region; Z20.828 Contact with and (suspected) exposure to other viral communicable diseases
CPT/HCPCS: 36415; 80053; 85025; 87641; U0003

== ENCOUNTER → 2020-05-06 | Outpatient (CLI) | payer MEDICARE ==
[~2020-05-06] MED LIST changes: +DOCU-153 PO; +GADOTERATE 7.5 MMOL/15ML VIAL. IVP ONE; -ISOS60TA2 PO; +ISOS60TA55 PO; +METH-562 PO; -METH750T2 PO
--- NOTE | 2020-05-09 09:36 | KCIC ---
MRI of the abdomen without contrast HISTORY: Renal lesions Multi sequential imaging of the abdomen was performed before and after the administration of IV gadol inium agent. FINDINGS: There are multiple small nonenhancing lesions in the kidneys bilaterally which are likely cysts. The largest is seen laterally on the right measures 8 mm x 12 mm. There is a single lesion in the right w hich has high signal T1 and could be hemorrhagic cyst. There is no enhancing mass seen. The adrenals appear normal. Visualized portions of the abdominal aorta and IVC appear normal. IMPRESSION: Small renal cysts bilaterally. No suspicious findings. Electronically signed by: Ever Poe III, MD (05/09/2020 9:34 AM) [id number]
== END ==
LOC: KCIC MRI 09:58
PROVIDERS: ATTEND Urology
DX: N28.1 Cyst of kidney, acquired (principal); N28.89 Other specified disorders of kidney and ureter
CPT/HCPCS: 74183; 82565; A9575

== ENCOUNTER → 2020-05-10 | Outpatient (CLI) | payer MEDICARE ==
[~2020-05-10] MED LIST changes: -GADOTERATE 7.5 MMOL/15ML VIAL. IVP ONE; +IOHEXOL 180 MG/ML 10 ML VIAL. IT ONE; +LIDOCAINE 1% Multi-Dose 20 ML VIAL. ID ONE
--- NOTE | 2020-05-10 16:05 | KCIC ---
Lumbar myelogram 05/10/2020 Clinical History: Low back pain which radiates down the left leg. Technique: After the risks and benefits of the procedure were explained to the patient, written infor med consent was obtained. The patient was placed prone on the fluoroscopy table and the lower back wa s prepped and draped in sterile fashion. 1% lidocaine was used as a local anesthetic. Under fluorosco pic guidance, the thecal sac of the lumbar cistern was punctured at the L2-L3 level using a 25-gauge Radha needle. After confirming clear CSF return, 15 cc of Omnipaque 180 were injected through the needle into the thecal sac of the lumbar cistern under fluoroscopic guidance. Following this the need le was removed and hemostasis achieved at the puncture site. A sterile bandage was placed on the skin puncture site. AP, bilateral oblique, lateral and standing neutral, flexion and extension lateral di gital radiographs of the lumbar spine were obtained. Following this the patient was taken to CT wher e a CT scan of the lumbar spine was performed. This will be reported separately. [facility] with an instruction sheet. The patient tolerated the procedure well and there were no immediate complications. The total fluoroscopic time for this procedure was 75 seco nds. 9 digital spot radiographs were obtained. Findings: Very mild S-shaped curvature of the thoracolumbar spine is seen. Mild to moderate anterolis thesis of L4 in relation L5 is seen. Degenerative changes consisting of vertebral endplate sclerosis and minimal to mild anterior and posterior vertebral body osteophyte formation are seen throughout th e lumbar disc spaces. Marked disc space narrowing is seen at L4-5. Disc space narrowing is seen at L5 -S1. Degenerative changes are seen involving the facet joints throughout the lumbar disc spaces. A mi ld anterior extradural defect is seen upon the contrast column at L1-2 and L2-3. Mild to moderate ant erior extradural defects are seen upon the contrast column at L3-4 and L4-5. There is no evidence of complete block of contrast at any level involving the lumbar vertebrae. Atherosclerotic calcification of the abdominal aorta is seen. The alignment of the lumbar vertebrae i s maintained on the flexion and extension radiographs. Impression: Degenerative changes are seen throughout the lumbar spine resulting in mild anterior extr adural defects at L1-2 and L2-3 and mild to moderate anterior extradural defects at L3-4 and L4-5. Electronically signed by: Job Bettencourt MD (05/10/2020 4:02 PM) [id number]
--- NOTE | 2020-05-10 16:36 | KCIC ---
CT lumbar myelogram 05/10/2020 Clinical History: Low back pain which radiates down the left leg. Technique: This study was performed after a lumbar myelogram, contiguous, 0.625 mm axial sections wer e obtained through the lumbar spine. 3 mm sagittal, coronal and axial reconstructed images were obtai hesham. One or more of the following individualized dose reduction techniques were utilized for this study: 1. Automated exposure control. 2. Adjustment of the mA and/or kV according to patient size. 3. Use of iterative reconstruction technique. Findings: Comparison is made to the patient's MRI of the lumbar spine dated 10/13/2019. Additional comp arison is made to the patient's lumbar myelogram performed earlier today. The sagittal and coronal reconstructed images demonstrate very mild S-shaped curvature of the thoraco lumbar spine. Mild to moderate anterolisthesis of L4 in relation L5 is seen. Bony fusion across this disc space is again seen. Degenerative changes consisting of vertebral endplate sclerosis and minimal to mild anterior and posterior vertebral body osteophyte formation is seen involving the remaining l umbar disc spaces. Vacuum disc phenomenon are seen involving the L3-4 and L5-S1 discs. Atheroscleroti c calcification abdominal aorta and its branches is noted. On the axial images at the L1-2 disc space there is a mild generalized disc bulge. This is eccentric to the right. Degenerative changes are seen involving the facet joints bilaterally. There is mild lig amentum flavum hypertrophy bilaterally. These findings do not result in significant central spinal ca nal or neural foraminal stenosis. At the L2-3 disc space there is a mild generalized disc bulge. This is eccentric to the right. Degene rative changes are seen involving the facet joints bilaterally. These findings do not result in signi ficant central spinal canal stenosis. No neural foraminal stenosis is seen. At the L3-4 disc space, the patient is post left hemilaminotomy. There is a moderate generalized disc bulge. Degenerative changes are seen involving the facet joints bilaterally. There is moderate right ligamentum flavum hypertrophy. These findings when combined result in mild to moderate right greater than left central spinal canal stenosis. Mild to moderate right greater than left neural foraminal s tenosis is seen. At the L4-5 level, the patient appears to be post bilateral hemilaminotomy. Degenerative changes are seen involving the facet joints, right greater than left. Posterior vertebral body osteophyte formati on is noted These findings when combined with the anterolisthesis result in mild to moderate right gr eater than left central spinal canal stenosis. Moderate to severe right greater than left neural fora sloane stenosis is seen. At he L5-S1 disc space there is a moderate generalized disc bulge. This is eccentric to the left. Deg enerative changes are seen involving the facet joints, left greater than right. These findings result in mild central spinal canal stenosis. Moderate to severe left neural foraminal stenosis is seen. Mi ld right neural foraminal stenosis is noted. Impression: 1. Post left hemilaminotomy at L3-4 and bilateral hemilaminotomy and fusion at L4-5. 2. The changes of degenerative disc disease are seen throughout the lumbar spine. These findings resu lt in mild to moderate right greater than left central spinal canal stenosis at L3-4 and L4-5 and mil d central spinal canal stenosis at L5-S1. Mild to moderate right greater than left neural foraminal s tenosis is seen at L3-4. Moderate to severe right greater than left neural foraminal stenosis is seen at L4-5. Mild right neural foraminal stenosis is seen at L5-S1. Moderate to severe left neural li inal stenosis is seen at L5-S1. Electronically signed by: Job Bettencourt MD (05/10/2020 4:33 PM) [id number]
--- NOTE | 2020-05-10 16:39 | KCIC ---
AP pelvis to include a lateral left hip radiograph 04/30/2020 CLINICAL HISTORY: Left hip pain. Two AP digital radiographs of the pelvis to include both hips were obtained. A lateral digital radiog raph of the left hip was obtained. No pelvic bone fracture is seen. Both hips are intact. Mild degene rative changes are seen involving both hips. Mild degenerative changes are seen involving both SI tiana nts. IMPRESSION: Mild degenerative changes are seen as discussed above. No acute osseous abnormality is se en. Electronically signed by: Job Bettencourt MD (05/10/2020 4:37 PM) [id number]
== END | disposition home or self-care (01) ==
LOC: KCIC 12:26
PROVIDERS: ATTEND Neurological Surgery
DX: M51.16 Intervertebral disc disorders with radiculopathy, lumbar region (principal); M48.061 Spinal stenosis, lumbar region without neurogenic claudication; M25.552 Pain in left hip; I70.0 Atherosclerosis of aorta; N18.30 Chronic kidney disease, stage 3 unspecified; I12.9 Hypertensive chronic kidney disease with stage 1 through stage 4 chronic kidney disease, or unspecified chronic kidney disease; E78.00 Pure hypercholesterolemia, unspecified; J45.909 Unspecified asthma, uncomplicated; E66.9 Obesity, unspecified; E03.9 Hypothyroidism, unspecified; Z85.828 Personal history of other malignant neoplasm of skin; Z79.899 Other long term (current) drug therapy; Z79.82 Long term (current) use of aspirin; Z72.89 Other problems related to lifestyle; Z98.890 Other specified postprocedural states; Z88.8 Allergy status to other drugs, medicaments and biological substances
CPT/HCPCS: 62304; 72132; 73501; J3490; Q9965

== ENCOUNTER → 2020-05-16 | Outpatient (CLI) | payer MEDICARE ==
[~2020-05-16] MED LIST changes: +BUPIVACAINE MPF 0.25% 10 ML VIAL. ONE; -IOHEXOL 180 MG/ML 10 ML VIAL. IT ONE; +IOHEXOL 180 MG/ML 10 ML VIAL. ONE; -LIDOCAINE 1% Multi-Dose 20 ML VIAL. ID ONE; +LORA10CA PO; +LOSA25TA54 PO; +methylPREDNISolone ACETATE 80 MG/ML VIAL. ONE
--- NOTE | 2020-05-16 14:35 | PDOC ---
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 Patient did very well with 50% improvement overall did fairly well for a couple years the pain is been returning now in the low back and left lower extremity mostly posterior gluteus posterior thigh posterior calf lateral calf as well and into the ankle and foot on the left side only worse with walking standing changing positions patient reports he is recently seen his neurosurgeon did have a cervical laminectomy and fusion recently and has a new myelogram showing some significant narrowing at the L5-S1 level worse on the left side. Patient reports the pain is radiating severe can be stabbing and aching the low back sharp alternate with dull in the back as well as radiating and and shooting in the left lower extremity worse with walking standing better with sitting or laying down patient reports it generally just wakes him from sleep once or twice a night but sometimes as often as 2 or 3 times. Patient rates his pain is a 10 on scale 10 is worse over the past week 7 on average 5 its least and is a 6 today. Patient reports no new motor or sensory deficits no bowel or bladder incontinence. Physical Exam: VS: Blood pressure is 175/99 pulse 57 respirations 18 temperature 97.7 F weight is 285 PE: PHYSICAL EXAMINATION: GENERAL: The patient is awake, alert, oriented, appropriate, very pleasant demeanor HEENT: Shows normocephalic, atraumatic. Extraocular movements are intact and symmetrical. Oral cavity: Mucous membranes moist and pink. Dentition is intact. NECK: Shows anterior throat supple without palpable lymphadenopathy noted. Swallow reflex symmetrical. CHEST: Shows normal on inspection. Breath sounds are clear bilaterally, distant but no rales or rhonchi auscultated. HEART: Shows S1, S2 clear. No murmurs auscultated. ABDOMEN: Soft, nontender, nondistended, obese. No palpable organomegaly is noted. No rebound or guarding demonstrated. BACK: Shows spine grossly in the midline. Normal-appearing cervical lordotic curvature. There is slightly increased thoracic kyphosis, some minor flattening of the lumbar lordotic curvature. Lumbar paraspinous muscles show symmetrical on inspection, on palpation shows some moderate tenderness diffusely throughout the upper, middle and lower distribution of the paraspinous muscles bilaterally and also into the lower thoracic paraspinous musculature, firm and tender, but without specific trigger points, without radiation of pain. The patient has good rotational motion of the lumbar spine, both laterally as well as extension and flexion without significant difficulty. No tenderness over the spinous processes, sacrum or sacroiliac regions. EXTREMITIES: Lower extremities show deep tendon reflexes 1+ in the patellar and tendo calcaneus tendons. Motor exam is 5 on a scale of 5 with right dorsiflexion, extension, quadriceps and hamstring flexion and 4/5 on the left. Peripheral pulses are 1+ posterior tibial. No peripheral edema is noted bilaterally. Lower extremities are warm and dry to touch, equal in color and appearance. SKIN: Shows warm and dry, good turgor. No edema. No sores, rashes or bruising throughout. Procedure: Procedure: Options discussed with the patient. Patient chart reviews her current medication regimen updated current review of systems updated today as well. We will proceed with a left-sided L5-S1 transforaminal epidural injection today with fluoroscopic guidance. Risks were discussed including but not limited to: Bleeding, infection, possibility of epidural hematoma and subsequent neurological compromise, dural puncture, headaches, spinal cord and/or nerve damage, potential injection of the vertebral artery at that level and permanent ischemic damage, and side effects of steroid medication, and poor results regarding pain control. Patient understands and wished to proceed. Patient will return to clinic in approximately 2 weeks for follow-up, was counseled as to return appointment activity level and side effects to be aware of. Medication Injected: Med Injected: Under sterile prep and drape patient was placed in prone position using C-arm fluoroscopic guidance to identify the L5-S1 distribution oblique and slightly cephalad angled C arm. The left L5-S1 target was identified and using lidocaine for anesthetizing the skin 22-gauge Radha pencil point needle was then used to enter the skin and into the subcutaneous tissues using direct C-arm fluoroscopic guidance to guide the needle into the transforaminal aspect of the left L5-S1 vertebrae this was confirmed with lateral views showing the needle tip in the superior aspect of the paravertebral region. Aspiration was noted to be negative, -1.5 cc of contrast was then injected with good spread both medially into the epidural space as well as laterally along the nerve root without uptake and without distribution and uptake on digital subtraction. At this time, a solution containing 2 cc of 0.25% bupivacaine and 80 mg of Depo- Medrol was then injected. Needle was withdrawn and sterile bandage was applied. Patient tolerated procedure well had no immediate complications Condition at Discharge: Condition at Discharge: Condition at discharge is stable, patient alert procedure well and had no complications. SYED LANGLEY MD May 16, 2020 14:35
== END | disposition home or self-care (01) ==
LOC: PNCL 13:52
PROVIDERS: ATTEND Anesthesiology
DX: M48.062 Spinal stenosis, lumbar region with neurogenic claudication (principal); M96.1 Postlaminectomy syndrome, not elsewhere classified; E78.00 Pure hypercholesterolemia, unspecified; E66.9 Obesity, unspecified; M19.90 Unspecified osteoarthritis, unspecified site; E03.9 Hypothyroidism, unspecified; I12.9 Hypertensive chronic kidney disease with stage 1 through stage 4 chronic kidney disease, or unspecified chronic kidney disease; N18.30 Chronic kidney disease, stage 3 unspecified; J45.909 Unspecified asthma, uncomplicated; G47.30 Sleep apnea, unspecified; Z85.828 Personal history of other malignant neoplasm of skin; Z79.82 Long term (current) use of aspirin; Z79.899 Other long term (current) drug therapy; Z98.890 Other specified postprocedural states; Z72.89 Other problems related to lifestyle; Z88.8 Allergy status to other drugs, medicaments and biological substances
CPT/HCPCS: 64483; J1040; J3490; Q9965

== ENCOUNTER → 2020-05-31 | Outpatient (CLI) | payer MEDICARE ==
--- NOTE | 2020-05-31 13:52 | PDOC ---
Progress Note - Pain Clinic Date of Service: DOS: DATE: 05/31/20 TIME: 13:49 Diagnosis: Dx: Lumbar radiculopathy with lumbar spinal stenosis with neurogenic claudication and post lumbar laminectomy syndrome History or Present Illness: HPI: 70-year-old male returns for follow-up status post left lumbar transforaminal injection L5-S1. Patient reports about 70% improvement and still improved in the low back and the left lower extremity patient reports still some pain in the posterior gluteus posterior thigh lateral thigh into the calf but very rarely patient reports he has been increasing his distance walking doing work activities household activities walking greater distances with much greater ease and comfort and travel with greater ease and comfort as well. Patient rates his pain at 9 on scale 10 is worse with past week 7 on average 3 at its least is a 7 today patient reports that sharp radiating in the low back and left lower extremity but much improved from previously patient reports he has some cramping in both of his legs otherwise no new motor or sensory deficits much better with sitting or laying down generally is not awakening from sleep at night. Patient reports no new motor or sensory deficits no new bowel or bladder incontinence or other complaints. Physical Exam: VS: Blood pressure 151/82 pulse 52 respirations 18 temperature 97.5 F height is 6 foot weight is 280 pounds PE: PHYSICAL EXAMINATION: GENERAL: The patient is awake, alert, oriented, appropriate, very pleasant demeanor HEENT: Shows normocephalic, atraumatic. Extraocular movements are intact and symmetrical. Oral cavity: Mucous membranes moist and pink. NECK: Shows anterior throat supple without palpable lymphadenopathy noted. Swallow reflex symmetrical. CHEST: Shows normal on inspection. Breath sounds are clear bilaterally. HEART: Shows S1, S2 clear. No murmurs auscultated. ABDOMEN: Soft, nontender, nondistended, obese. No palpable organomegaly is noted. No rebound or guarding demonstrated. BACK: Shows spine grossly in the midline. Normal-appearing cervical lordotic curvature. There is slightly increased thoracic kyphosis, some minor flattening of the lumbar lordotic curvature. Lumbar paraspinous muscles show symmetrical on inspection, on palpation shows some moderate tenderness diffusely throughout the upper, middle and lower distribution of the paraspinous muscles, without specific trigger points, without radiation of pain. The patient has good rotational motion of the lumbar spine, both laterally as well as extension and flexion without significant difficulty. EXTREMITIES: Lower extremities show deep tendon reflexes 1+ in the patellar and tendo calcaneus tendons. Motor exam is 5 on a scale of 5 with right dorsiflexion, extension, quadriceps and hamstring flexion and 4/5 on the left. Peripheral pulses are 1+ posterior tibial. No peripheral edema is noted bilat erally. Lower extremities are warm and dry to touch, equal in color and appearance. SKIN: Shows warm and dry, good turgor. No edema. No sores, rashes or bruising throughout. Procedure: Procedure: Options discussed with the patient. Patient chart reviews his current medication regimen updated current review of systems updated today as well. We will proceed with a left L5-S1 level transforaminal epidural injection today with fluoroscopic guidance. Risks were discussed including but not limited to: Bleeding, infection, possibility of epidural hematoma and subsequent neurological compromise, dural puncture, headaches, spinal cord and/or nerve damage, side effects of steroid medication, potential injection into the vertebr al artery at that level and permanent ischemic damage, and poor results regarding pain control. Patient understands and wished to proceed. Patient will return to the clinic in approximate 2 weeks for follow-up, was counseled as return appointment activity level and side effects to be aware of. Medication Injected: Med Injected: Under sterile prep and drape patient was placed in prone position using C-arm fluoroscopic guidance to identify the L5-S1 distribution oblique and slightly cephalad angled C arm. The left L5-S1 target was identified and using lidocaine for anesthetizing the skin 22-gauge Radha pencil point needle was then used to enter the skin and into the subcutaneous tissues using direct C-arm fluoroscopic guidance to guide the needle into the transforaminal aspect of the left L5-S1 vertebrae this was confirmed with lateral views showing the needle tip in the superior aspect of the paravertebral region. Aspiration was noted to be negative, -1.5 cc of contrast was then injected with good spread both medially into the epidural space as well as laterally along the nerve root without uptake and without distribution and uptake on digital subtraction. At this time, a solution containing 2 cc of 0.25% bupivacaine and 80 mg of Depo- Medrol was then injected. Needle was withdrawn and sterile bandage was applied. Patient tolerated procedure well had no immediate complications Condition at Discharge: Condition at Discharge: Condition at discharge stable, patient tolerated the procedure well and had no complications. SYED LANGLEY MD May 31, 2020 13:52
--- NOTE | 2020-05-31 13:53 | PDOC4 ---
PROCEDURE Procedure Patient was consented for left L5-S1 transforaminal epidural steroid injection with fluoroscopic guidance. Risks were discussed including but not limited to: Bleeding, infection, possibility of epidural hematoma and subsequent neurological compromise, dural puncture, headaches, spinal cord and/or nerve damage, side effects of steroid medication, potential injection into the vertebral artery at that level and permanent ischemic damage and poor results regarding pain control. Patient understands and wished to proceed. Under sterile prep and drape patient was placed in prone position using C-arm fluoroscopic guidance to identify the L5-S1 distribution oblique and slightly cephalad angled C arm. The left L5-S1 target was identified and using lidocaine for anesthetizing the skin 22-gauge Radha pencil point needle was then used to enter the skin and into the subcutaneous tissues using direct C-arm fluoroscopic guidance to guide the needle into the transforaminal aspect of the left L5-S1 vertebrae this was confirmed with lateral views showing the needle tip in the superior aspect of the paravertebral region. Aspiration was noted to be negative, -1.5 cc of contrast was then injected with good spread both media lly into the epidural space as well as laterally along the nerve root without uptake and without distribution and uptake on digital subtraction. At this time, a solution containing 2 cc of 0.25% bupivacaine and 80 mg of Depo-Medrol was then injected. Needle was withdrawn and sterile bandage was applied. Patient tolerated procedure well had no immediate complications SYED LANGLEY MD May 31, 2020 13:53
== END | disposition home or self-care (01) ==
LOC: PNCL 13:02
PROVIDERS: ATTEND Anesthesiology
DX: M48.062 Spinal stenosis, lumbar region with neurogenic claudication (principal); M54.16 Radiculopathy, lumbar region; M96.1 Postlaminectomy syndrome, not elsewhere classified; E78.00 Pure hypercholesterolemia, unspecified; J45.909 Unspecified asthma, uncomplicated; E66.9 Obesity, unspecified; G47.30 Sleep apnea, unspecified; I12.9 Hypertensive chronic kidney disease with stage 1 through stage 4 chronic kidney disease, or unspecified chronic kidney disease; N18.30 Chronic kidney disease, stage 3 unspecified; E03.9 Hypothyroidism, unspecified; Z85.828 Personal history of other malignant neoplasm of skin; Z79.82 Long term (current) use of aspirin; Z79.899 Other long term (current) drug therapy; Z98.890 Other specified postprocedural states; Z72.89 Other problems related to lifestyle; Z82.49 Family history of ischemic heart disease and other diseases of the circulatory system; Z88.8 Allergy status to other drugs, medicaments and biological substances
CPT/HCPCS: 64483; J1040; J3490; Q9965

== ENCOUNTER → 2020-06-14 | Outpatient (CLI) | payer MEDICARE ==
--- NOTE | 2020-06-14 10:08 | PDOC ---
Progress Note - Pain Clinic Date of Service: DOS: DATE: 06/14/20 TIME: 10:02 Diagnosis: Dx: Lumbar radiculopathy with lumbar spinal stenosis with neurogenic claudication and lumbar postlaminectomy syndrome History or Present Illness: HPI: 70-year-old male returns for follow-up status post lumbar translaminar epidural steroid injection x2 left L5-S1. Patient reports about 80% improvement until just recently the past few days the pain is been returning in the low back and left lower extremity posterior gluteus posterior thigh and lateral thigh also in the calf occasionally but mostly in the back and the left hip and thigh. Patient reports is a 7 on scale 10 is worse over the past week for an average to its least is a 4 today patient describes as aching and radiating in the left lower extremity much better for the last injection was increase his daily activities as far as walking doing household activities travel with greater ease and comfort and sleeping better at night patient reports still better when he is off his feet sitting or laying down generally is not waking him from sleep. He reports no new motor or sensory deficits no new bowel or bladder incontinence or other complaints. Physical Exam: VS: Blood pressure is 142/83 pulse 64 respirations 18 temperature 97.2 F height 6 foot weight is 279 pounds PE: PHYSICAL EXAMINATION: GENERAL: The patient is awake, alert, oriented, appropriate, very pleasant demeanor HEENT: Shows normocephalic, atraumatic. Extraocular movements are intact and symmetrical. Oral cavity: Mucous membranes moist and pink. Dentition is intact. NECK: Shows anterior throat supple without palpable lymphadenopathy noted. Swallow reflex symmetrical. CHEST: Shows normal on inspection. Breath sounds are clear bilaterally, distant but no rales rhonchi wheezes auscultated. HEART: Shows S1, S2 clear. No murmurs auscultated. ABDOMEN: Soft, nontender, nondistended, obese. No palpable organomegaly is noted. BACK: Shows spine grossly in the midline. Normal-appearing cervical lordotic curvature. There is increased thoracic kyphosis, some minor flattening of the lumbar lordotic curvature. Lumbar paraspinous muscles show symmetrical on inspection, on palpation shows some moderate tenderness diffusely throughout the upper, middle and lower distribution of the paraspinous muscles without specific trigger points, without radiation of pain. The patient has good rotational motion of the lumbar spine, both laterally as well as extension and flexion without significant difficulty. EXTREMITIES: Lower extremities show deep tendon reflexes 1+ in the patellar and tendo calcaneus tendons. Motor exam is 5 on a scale of 5 with right dorsiflexion, extension, quadriceps and hamstring flexion and 4/5 on the left. Peripheral pulses are 1+ posterior tibial. No peripheral edema is noted bilaterally. Lower extremities are warm and dry. SKIN: Shows warm and dry, good turgor. No edema. No sores, rashes or bruising throughout. Procedure: Procedure: Options were discussed with the patient. Patient's old chart was reviewed his his current medication regimen updated current review of systems updated today as well. We will proceed with a third in the series left L5-S1 transforaminal epidural risks were discussed including but not limited to: Bleeding, infection, possibility of epidural hematoma and subsequent neurological compromise, dural puncture, headaches, spinal cord and/or nerve damage, potential injection into the vertebral artery at that level and permanent ischemic damage, side effects of steroid medication, and poor results regarding pain control. Patient und erstands and wished to proceed. Patient will return to the clinic in approximate 2 weeks for follow-up, was counseled as to return appointment activity level and side effects to be aware of. Medication Injected: Med Injected: Under sterile prep and drape patient was placed in prone position using C-arm fluoroscopic guidance to identify the L5-S1 distribution oblique and slightly cephalad angled C arm. The left L5-S1 target was identified and using lidocaine for anesthetizing the skin 22-gauge Radha pencil point needle was then used to enter the skin and into the subcutaneous tissues using direct C-arm fluoroscopic guidance to guide the needle into the transforaminal aspect of the left L5-S1 vertebrae this was confirmed with lateral views showing the needle tip in the superior aspect of the paravertebral region. Aspiration was noted to be negative, 1.5 cc of contrast was then injected with good spread both medially into the epidural space as well as laterally along the nerve root without uptake and without distribution and uptake on digital subtraction. At this time, a solution containing 2 cc of 0.25% bupivacaine and 80 mg of Depo-Medrol was then injected. Needle was withdrawn and sterile bandage was applied. Patient t olerated procedure well had no immediate complications Condition at Discharge: Condition at Discharge: Condition at discharge stable, patient tolerated procedure well and had no complications. SYED LANGLEY MD June 14, 2020 10:08
--- NOTE | 2020-06-14 10:09 | PDOC4 ---
PROCEDURE Procedure Patient was consented for left L5-S1 transforaminal epidural steroid injection. Risks were discussed including but not limited to: Bleeding, infection, possibility of epidural hematoma and subsequent neurological compromise, dural puncture, headaches, spinal cord and/or nerve damage, potential injection of the vertebral artery at that level and permanent ischemic damage, side effects of steroid medication, and poor results regarding pain control. Patient understands and wished to proceed. Under sterile prep and drape patient was placed in prone position using C-arm fluoroscopic guidance to identify the L5-S1 distribution oblique and slightly cephalad angled C arm. The left L5-S1 target was identified and using lidocaine for anesthetizing the skin 22-gauge Radha pencil point needle was then used to enter the skin and into the subcutaneous tissues using direct C-arm fluoroscopic guidance to guide the needle into the transforaminal aspect of the left L5-S1 vertebrae this was confirmed with lateral views showing the needle tip in the superior aspect of the paravertebral region. Aspiration was noted to be negative, -1.5 cc of contrast was then injected with good spread both medially into the epidural space as well as laterally along the nerve root without uptake and without distribution and uptake on digital subtraction. At this time, a solution containing 2 cc of 0.25% bupivacaine and 80 mg of Depo- Medrol was then injected. Needle was withdrawn and sterile bandage was applied. Patient tolerated procedure well had no immediate complications SYED LANGLEY MD June 14, 2020 10:08
== END | disposition home or self-care (01) ==
LOC: PNCL 09:29
PROVIDERS: ATTEND Anesthesiology
DX: M48.062 Spinal stenosis, lumbar region with neurogenic claudication (principal); M96.1 Postlaminectomy syndrome, not elsewhere classified; M54.16 Radiculopathy, lumbar region; E78.00 Pure hypercholesterolemia, unspecified; G47.30 Sleep apnea, unspecified; I12.9 Hypertensive chronic kidney disease with stage 1 through stage 4 chronic kidney disease, or unspecified chronic kidney disease; N18.30 Chronic kidney disease, stage 3 unspecified; J45.909 Unspecified asthma, uncomplicated; E66.9 Obesity, unspecified; E03.9 Hypothyroidism, unspecified; Z85.828 Personal history of other malignant neoplasm of skin; Z79.82 Long term (current) use of aspirin; Z79.899 Other long term (current) drug therapy; Z98.890 Other specified postprocedural states; Z88.8 Allergy status to other drugs, medicaments and biological substances
CPT/HCPCS: 64483; J1040; J3490; Q9965

== ENCOUNTER → 2021-04-25 | Outpatient (CLI) | payer MEDICARE ==
[~2021-04-25] MED LIST changes: -BUPIVACAINE MPF 0.25% 10 ML VIAL. ONE; +CYCL10TA19 PO; -CYCL10TA2 PO; +DOCU-148 PO; -DOCU-153 PO; +FEXO-212 PO; -FEXO180T16 PO; -IOHEXOL 180 MG/ML 10 ML VIAL. ONE; +TIZA-75 PO; -TIZA4TAB2 PO; -methylPREDNISolone ACETATE 80 MG/ML VIAL. ONE
--- NOTE | 2021-04-26 12:47 | KCIC ---
STUDY: MRI of the abdomen without IV contrast COMPARISON: Similar exam dated May 062020 INDICATION:Renal mass, follow-up. TECHNIQUE: Multiplanar multisequence imaging was obtained through the abdomen. . FINDINGS: In the right kidney, there is a partially exophytic simple cyst arising from the anterior aspect of t he midpole. Slightly caudal and posterior to this there is a 1.2 cm parenchymal abnormality which is high signal intensity on T1, isointense to renal parenchyma on T2 and demonstrates no loss of signal with opposed phase imaging. This abnormality is unchanged in size and morphology since CT scan of June 142015 and is most consistent with benign proteinaceous cyst with no suspicious elements. No pat hologic adenopathy is seen. No free or loculated fluid collections. No acute significant abnormalitie s of the remaining visualized solid organs and no biliary abnormalities. No marrow replacing lesions within the spine. IMPRESSION: 1. 2 benign cysts involving the right kidney for which no additional follow-up is required. Electronically signed by: Federico Cheng MD (04/26/2021 12:45 PM) [id number]
== END ==
LOC: KCIC MRI 08:28
PROVIDERS: ATTEND Urology
DX: N28.1 Cyst of kidney, acquired (principal); N28.89 Other specified disorders of kidney and ureter
CPT/HCPCS: 74181